=== PATIENT | female | born 1960 | race Caucasian/White ===

== ENCOUNTER → 2016-11-20 | Outpatient (CLI) | payer OTHER ==
--- NOTE | 2016-11-23 09:41 | MM ---
Reason for exam: screening (asymptomatic). Last mammogram was performed 1 year ago. History: Patient is postmenopausal and has history of ovarian cancer at age 52. Took estrogen for 6 years 1 month beginning at age 45. Physical Findings: A clinical breast exam by your physician is recommended on an annual basis and results should be correlated with mammographic findings. MG Screening Mammo w CAD Bilateral CC and MLO view(s) were taken. Prior study comparison: November 15, 2015, bilateral MG 3d screening mammo w/cad. March 26, 2014, bilateral MG screening mammo w CAD. The breast tissue is heterogeneously dense. This may lower the sensitivity of mammography. No significant changes when compared with prior studies. ASSESSMENT: Negative, BI-RAD 1 RECOMMENDATION: Routine screening mammogram of both breasts in 1 year.
== END | disposition home or self-care (01) ==
LOC: RADMAMWWP 13:08
PROVIDERS: ATTEND Family Medicine
DX: Z12.31 Encounter for screening mammogram for malignant neoplasm of breast (principal)

== ENCOUNTER → 2017-02-12 | Outpatient (CLI) | payer OTHER ==
--- NOTE | 2017-02-12 09:49 | CT ---
EXAMINATION TYPE: CT brain wo/w con DATE OF EXAM: 02/12/2017 9:32 AM COMPARISON: NONE HISTORY: Change in memory CT DLP: 1999.6 mGycm Automated exposure control for dose reduction was used. CONTRAST: CT scan of the head is performed without and with IV Contrast, patient injected with 100 mL of Omnipa que 300. FINDINGS: There is mild, diffuse periventricular white matter lucency compatible with chronic white matter isch emic change. Central structures are midline. There is no evidence of hydrocephalus. No acute focal lesion, mass ef fect or midline shift is seen. I do not see evidence of intracranial blood. Following intravenous administration of contrast, I do not see evidence of abnormal enhancement Visualized portions of the paranasal sinuses and mastoids are clear. No depressed skull fracture is s een. IMPRESSION: 1. NO ACUTE INTRACRANIAL ABNORMALITY. 2. MILD, CHRONIC WHITE MATTER ISCHEMIC CHANGE.
== END | disposition home or self-care (01) ==
LOC: RADCTMAIN 08:58
PROVIDERS: ATTEND Internal Medicine
DX: I67.82 Cerebral ischemia (principal); C56.1 Malignant neoplasm of right ovary
CPT/HCPCS: 70470; Q9967

== ENCOUNTER → 2018-01-03 | Outpatient (CLI) | payer OTHER ==
--- NOTE | 2018-01-04 10:23 | MM ---
Reason for exam: screening (asymptomatic). Last mammogram was performed 1 year and 2 months ago. History: Patient is postmenopausal and has history of ovarian cancer at age 52. Took estrogen for 6 years 1 month beginning at age 45. Physical Findings: A clinical breast exam by your physician is recommended on an annual basis and results should be correlated with mammographic findings. MG Screening Mammo w CAD Bilateral CC and MLO view(s) were taken. Prior study comparison: November 20, 2016, bilateral MG screening mammo w CAD. November 15, 2015, bilateral MG 3d screening mammo w/cad. The breast tissue is heterogeneously dense. This may lower the sensitivity of mammography. No significant changes when compared with prior studies. ASSESSMENT: Negative, BI-RAD 1 RECOMMENDATION: Routine screening mammogram of both breasts in 1 year.
== END | disposition home or self-care (01) ==
LOC: RADMAMWWP 10:11
PROVIDERS: ATTEND Family Medicine
DX: Z12.31 Encounter for screening mammogram for malignant neoplasm of breast (principal)
CPT/HCPCS: 77067

== ENCOUNTER 2018-10-09 13:56 | Inpatient (IN) | payer OTHER ==
[2018-10-09] MEDS ORDERED: AMPICILLIN-SULBACTAM 3 GM in SODIUM CHLORIDE 0.9% 100 ML IVPB STA (15:19)
[2018-10-09] MEDS ORDERED: VANCOMYCIN IV PER PHARMACY 1 EACH MISC MISCELLANE PRN (15:46)
--- NOTE | 2018-10-09 15:47 | ED ---
Upper Extremity HPI - General Chief Complaint: Extremity Injury, Upper Stated Complaint: Infected hand Time Seen by Provider: 10/09/18 14:40 Source: patient, RN notes reviewed, old records reviewed Mode of arrival: ambulatory Limitations: no limitations - History of Present Illness Initial Comments: Patient is a 58-year-old female who presents return to complain of right hand pain. Patient reports that she was bit by her PIG, the day after [place]. She reports she went to [facility]. At that time she reports that she had injuries to her arteries and veins. We had to do for internal stitches and for external stitches as well as cauterizer artery. Patient reports that the close the wound very tightly. She was placed on Augmentin for infection prevention. She's been taking the medication as prescribed. She is concerned because she's now has increased swelling, redness to the hand and purulent drainage from the laceration site. Patient states that she also has noticed that her arm seems to have a yellowish discoloration extending up to the arm. She reports that she has pain with some range of motion of her fingers but is able to flex and extend the fingers. Patient denies any fevers or chills. - Related Data Home Medications Medication Instructions Recorded Confirmed Aspirin [Adult Low Dose Aspirin EC] 81 mg PO DAILY 10/09/18 10/09/18 Cholecalciferol [Vitamin D3] 1,000 unit PO DAILY 10/09/18 10/09/18 Cyanocobalamin (Vitamin B-12) 1,000 mcg PO DAILY 10/09/18 10/09/18 [Vitamin B-12] Donepezil [Aricept] 10 mg PO HS 10/09/18 10/09/18 Evening [place] Oil 500 mg PO DAILY 10/09/18 10/09/18 Flaxseed Oil 1,000 mg PO DAILY 10/09/18 10/09/18 Magnesium 200 mg PO DAILY 10/09/18 10/09/18 Multivitamins, Thera [Multivitamin 1 tab PO DAILY 10/09/18 10/09/18 (formulary)] Triamterene/Hydrochlorothiazid 1 cap PO QAM 10/09/18 10/09/18 [Dyazide 37.5-25 Capsule] Vitamin E (Dl,Tocopheryl Acet) 400 unit PO DAILY 10/09/18 10/09/18 [Vitamin E] Zinc 50 mg PO DAILY 10/09/18 10/09/18 buPROPion HCL [Wellbutrin SR] 100 mg PO BID 10/09/18 10/09/18 Allergies Allergy/AdvReac Type Severity Reaction Status Date / Time No Known Allergies Allergy Verified 10/09/18 14:53 Review of Systems ROS Statement: Those systems with pertinent positive or pertinent negative responses have been documented in the HPI. ROS Other: All systems not noted in ROS Statement are negative. Past Medical History Past Medical History: Cancer Additional Past Medical History / Comment(s): ovarian cancer History of Any Multi-Drug Resistant Organisms: None Reported Past Surgical History: Section, Cholecystectomy, Hernia Repair, Hysterectomy Past Psychological History: No Psychological Hx Reported Smoking Status: Never smoker Past Alcohol Use History: Occasional Past Drug Use History: Marijuana General Exam - General Exam Comments Initial Comments: 58-year-old female. Alert and oriented. Limitations: no limitations General appearance: alert, in no apparent distress Head exam: Present: atraumatic, normocephalic, normal inspection Eye exam: Present: normal appearance, PERRL, EOMI. Absent: scleral icterus, conjunctival injection, periorbital swelling ENT exam: Present: normal exam, mucous membranes moist Neck exam: Present: normal inspection. Absent: tenderness, meningismus, lymphadenopathy Respiratory exam: Present: normal lung sounds bilaterally. Absent: respiratory distress, wheezes, rales, rhonchi, stridor Cardiovascular Exam: Present: regular rate, normal rhythm, normal heart sounds. Absent: systolic murmur, diastolic murmur, rubs, gallop, clicks GI/Abdominal exam: Present: soft, normal bowel sounds. Absent: distended, tenderness, guarding, rebound, rigid Right Shoulder Exam: Present: normal inspection, full ROM Upper Arm exam: Present: normal inspection, full ROM Elbow exam: Present: normal inspection, full ROM Forearm Wrist exam: Present: normal inspection, full ROM Hand Wrist exam: Present: full ROM, laceration, erythema. Absent: normal inspection (Patient has a 3 cm incision site over the dorsum of the right hand over the third metacarpal. The wound was tightly closed with some purulent drainage noted.) Neuro motor exam: Present: wrist extension intact, thumb opposition intact, thumb IP flexion intact, thumb adduction intact, fingers 2-5 abduction intact Vascular: Present: normal capillary refill Back exam: Present: normal inspection Neurological exam: Present: alert, oriented X3, CN II-XII intact Psychiatric exam: Present: normal affect, normal mood Skin exam: Present: warm, dry, intact, normal color. Absent: rash Course Vital Signs 10/09/18 14:02 Temperature 98.3 F Pulse Rate 79 Respiratory 16 Rate Blood Pressure 133/77 O2 Sat by Pulse 99 Oximetry Medical Decision Making - Medical Decision Making 58-year-old female presents emergency department with chief complaint of right hand pain and swelling. Patient was bit by her piG on October 05. Patient had internal and external sutures placed on that time. sHE Presents today with significant swelling of the hand. She does have range of motion and normal capillary refill of the fingers. This time not concerned for tenosynovitis but could be early started to this. I removed the 4 stitches from the wound. Purulent fluid was expressed from the laceration site. Patient was started on IV antibiotics, Unasyn and vancomycin. Patient will be admitted at this time under Gen. medicine with consults orthopedic surgery. Patient agrees to treatment plan will comply. She agrees for admission. - Lab Data Result diagrams: 10/09/18 15:44 Lab Results 10/09/18 Range/Units 15:44 Sodium 139 (137-145) mmol/L Potassium 3.5 (3.5-5.1) mmol/L Chloride 98 (98-107) mmol/L Carbon Dioxide 32 H (22-30) mmol/L Anion Gap 9 mmol/L BUN 15 (7-17) mg/dL Creatinine 0.94 (0.52-1.04) mg/dL Est GFR (CKD-EPI)AfAm 78 (>60 ml/min/1.73 sqM) Est GFR (CKD-EPI)NonAf 68 (>60 ml/min/1.73 sqM) Glucose 135 H (74-99) mg/dL Calcium 9.6 (8.4-10.2) mg/dL Total Bilirubin 0.5 (0.2-1.3) mg/dL AST 39 H (14-36) U/L ALT 47 (9-52) U/L Alkaline Phosphatase 80 (38-126) U/L Total Protein 6.8 (6.3-8.2) g/dL Albumin 4.0 (3.5-5.0) g/dL - Radiology Data Radiology results: report reviewed Normal and x-ray. No evidence of demineralization or signs of osteomyelitis at this time. Disposition Clinical Impression: Animal bite of right hand with infection, Failure of outpatient treatment Disposition: ADMITTED IP TO THIS HOSP Condition: Stable Additional Instructions: Patient advised follow-up with primary care Is patient prescribed a controlled substance at d/c from ED?: No Referrals: Clayton Guerrero DO [Primary Care Provider] - 1-2 days Time of Disposition: 16:32
[2018-10-09] MEDS ORDERED: MORPHINE SULFATE 4 MG/ML SYRINGE IVP STA (16:14)
[2018-10-09] MEDS ORDERED: SODIUM CHLORIDE 0.9% 1,000 ML IV ONE (16:14)
[2018-10-09 16:20] LABS: Calcium 9.6 mg/dL (8.4-10.2); Potassium 3.5 mmol/L (3.5-5.1); Total Bilirubin 0.5 mg/dL (0.2-1.3); Total Protein 6.8 g/dL (6.3-8.2)
--- NOTE | 2018-10-09 16:25 | XR ---
EXAMINATION TYPE: XR hand complete RT DATE OF EXAM: 10/09/2018 COMPARISON: NONE HISTORY: Redness and swelling TECHNIQUE: 3 views FINDINGS: There is minor spurring of the IP joints. Metacarpals are intact. I see no fracture nor dis location. There is soft tissue swelling on the dorsum of the hand. There are small densities that cou ld be foreign bodies. IMPRESSION: Possible small foreign bodies on the skin surface on the dorsum of the hand on the latera l view. Soft tissue swelling. No fracture seen.
[2018-10-09] MEDS: SODIUM CHLORIDE 0.9% 1,000 ML IV SCH (16:28)
[2018-10-09] MEDS ORDERED: VANCOMYCIN 1,500 MG in SODIUM CHLORIDE 0.9% 250 ML IVPB ONE (16:30)
[2018-10-09 16:32] LABS: Basophils # (A) 0.1 k/uL (0-0.2); Basophils % (A) 1 %; Eosinophils # (A) 0.1 k/uL (0-0.7); Eosinophils % (A) 1 %; HCT 23.3 % (34.0-46.0); HGB 7.9 gm/dL (11.4-16.0); Lymphocytes % (A) 30 %; MCH 29.8 pg (25.0-35.0); MCHC 33.8 g/dL (31.0-37.0); MCV 88.4 fL (80.0-100.0); Mean Platelet Volume 6.6; Monocytes # (A) 0.5 k/uL (0-1.0); Monocytes % (A) 6 %; Neutrophils # (A) 5.7 k/uL (1.3-7.7); Neutrophils % (A) 59 %; Platelet Count 517 k/uL (150-450); RBC 2.64 m/uL (3.80-5.40); RDW 11.9 % (11.5-15.5); WBC 9.7 k/uL (3.8-10.6)
[2018-10-09] MEDS ORDERED: LORazepam 2 MG/ML INJ IV PRN (16:33)
[2018-10-09] MEDS ORDERED: IBUPROFEN 400 MG TAB PO PRN (16:33)
[2018-10-09] MEDS ORDERED: ACETAMINOPHEN TAB 325 MG TAB PO PRN (16:33)
[2018-10-09] MEDS ORDERED: ONDANSETRON 4 MG/2 ML VIAL IVP PRN (16:33)
[2018-10-09] MEDS ORDERED: NALOXONE 0.4 MG/ML 1 ML VIAL IV PRN (16:33)
[2018-10-09] MEDS ORDERED: ALPRAZolam 0.25 MG TAB PO PRN (18:07)
--- NOTE | 2018-10-09 18:48 | P.CNOR ---
History of Present Illness - [facility] Consult date: 10/09/18 Consult reason: other History of present illness: Patient is a 58-year-old female who presented to [facility] on 2017 with regards to worsening pain and swelling involving her right hand. Patient initially had an injury involving the hand on 10/05/2018 while she was at home. She states that her pig bit her hand. She reported to [facility] initially to the emergency room. A bedside procedure was done, a closing incision with nylon sutures and she was discharged home on oral antibiotics. Over the last few days, patient has noticed worsening swelling, redness and no drainage. She reported to [facility] today reevaluation. Due to the amount of swelling and drainage, she was admitted under internal medicine for cellulitis/abscess. Our orthopedic team was consulted for possible surgical intervention. Patient was evaluated today at bedside, she did have family at bedside. She is resting comfortably. She notes discomfort over the dorsum of the right hand, mainly with movement. She notes no significant numbness or tingling involving any of the digits. She denies any wrist, elbow, shoulder pain at this time. She has no other orthopedic complaints at this time. she denies any previous surgery involving the right upper extremity. She does have a history of ovarian cancer, she's 5 in remission. She recently quit smoking, she's currently on Chantix. Review of Systems Constitutional: Reports as per [facility] Past Medical History Past Medical History: Cancer Additional Past Medical History / Comment(s): ovarian cancer History of Any Multi-Drug Resistant Organisms: None Reported Past Surgical History: Section, Cholecystectomy, Hernia Repair, Hysterectomy Additional Past Surgical History / Comment(s): broken pinky finger Past Psychological History: No Psychological Hx Reported Smoking Status: Never smoker Past Alcohol Use History: Occasional Past Drug Use History: Marijuana - Past Family History Father Additional Family Medical History / Comment(s): heart attach at 64 Medications and Allergies Home Medications Medication Instructions Recorded Confirmed Type Aspirin [Adult Low Dose Aspirin EC] 81 mg PO DAILY 10/09/18 10/09/18 History Cholecalciferol [Vitamin D3] 1,000 unit PO DAILY 10/09/18 10/09/18 History Cyanocobalamin (Vitamin B-12) 1,000 mcg PO DAILY 10/09/18 10/09/18 History [Vitamin B-12] Donepezil [Aricept] 10 mg PO HS 10/09/18 10/09/18 History Evening [place] Oil 500 mg PO DAILY 10/09/18 10/09/18 History Flaxseed Oil 1,000 mg PO DAILY 10/09/18 10/09/18 History Magnesium 200 mg PO DAILY 10/09/18 10/09/18 History Multivitamins, Thera [Multivitamin 1 tab PO DAILY 10/09/18 10/09/18 History (formulary)] Triamterene/Hydrochlorothiazid 1 cap PO QAM 10/09/18 10/09/18 History [Dyazide 37.5-25 Capsule] Vitamin E (Dl,Tocopheryl Acet) 400 unit PO DAILY 10/09/18 10/09/18 History [Vitamin E] Zinc 50 mg PO DAILY 10/09/18 10/09/18 History buPROPion HCL [Wellbutrin SR] 100 mg PO BID 10/09/18 10/09/18 History Allergies Allergy/AdvReac Type Severity Reaction Status Date / Time No Known Allergies Allergy Verified 10/09/18 14:53 Physical Examination Right upper extremity: Exam of the extremity, there is a notable linear type incision on the dorsum of the hand and the third metacarpal space. There is erythema that surrounds that area. Erythema does not track and of the wrist or distal into the fingers. I'm able to express purulent material from the wound She is able to wiggle the fingers and minimal difficulty, passive extension of the fingers reproduces no significant pain in the hand. She is able to flex the hand with minimal difficulty Obvious swelling noted throughout the second third fourth and fifth metacarpals No open lesions are visualized on the palmar aspect of the hand Radial and ulnar pulses are 2+ Sensory exam to light touch throughout the extremity is intact. Results - Labs Labs: Abnormal Lab Results - Last 24 Hours (Table) 10/09/18 10/09/18 Range/Units 15:44 15:44 RBC 2.64 L (3.80-5.40) m/uL Hgb 7.9 L (11.4-16.0) gm/dL Hct 23.3 L (34.0-46.0) % Plt Count 517 H (150-450) k/uL Carbon Dioxide 32 H (22-30) mmol/L Glucose 135 H (74-99) mg/dL AST 39 H (14-36) U/L H & H 10/09/18 Range/Units 15:44 Hgb 7.9 L (11.4-16.0) gm/dL Hct 23.3 L (34.0-46.0) % Result Diagrams: 10/09/18 15:44 10/09/18 15:44 - Diagnostic results Wrist/Hand x-ray: report reviewed, image reviewed Assessment and Plan Plan: Imagin views of the right hand were obtained and reviewed. Images demonstrate no acute fractures or dislocations. There is questionable foreign body noted, this is difficult to visualize. Assessment: 1. Right dorsal hand cellulitis/abscess 2. Subacute right hand animal bite 3. Other medical comorbidities Plan: I was able to discuss the case, including physical exam findings and imaging studies my attending Dr. White. With current symptoms, we recommend a surgical procedure, more specifically a incision and drainage along with irrigation and debridement. We would like to proceed with this on 10/10/2018. I discussed the case with the patient, this including surgical intervention at bedside tonight. Risks and benefits of the procedure were discussed, this to include but not exclude blood loss, pain and stiffness, need for subsequent surgery. Patient is in good understanding would like to proceed. Obtaining consent Nothing by mouth after midnight Medical recommendations Pain control Infectious disease consult Further recommendations to follow Time with Patient: Less than 30
[2018-10-09] MEDS ORDERED: PNEUMOCOCCAL VACC-PNEUMOVAX 23 25 MCG/0.5 ML VIAL IM ONE (19:05)
[2018-10-09] MEDS ORDERED: INFLUENZA VACCINE (6 MOS+) 60 MCG/0.5 ML SYRINGE IM ONE (19:05)
[2018-10-09] MEDS: MORPHINE SULFATE 4 MG/ML SYRINGE IV PRN ×2 (19:37→22:54)
[2018-10-09 21:23] LABS: Albumin 3.4 g/dL (3.5-5.0); Calcium 8.7 mg/dL (8.4-10.2); Potassium 3.6 mmol/L (3.5-5.1); Total Bilirubin 0.3 mg/dL (0.2-1.3); Total Protein 5.9 g/dL (6.3-8.2)
[2018-10-09] MEDS: VARENICLINE 1 MG TAB PO SCH (21:25)
[2018-10-09] MEDS: AMPICILLIN-SULBACTAM 3 GM in SODIUM CHLORIDE 0.9% 100 ML IVPB SCH (21:25)
[2018-10-09] MEDS: DONEPEZIL 10 MG TAB PO SCH (21:28)
[2018-10-09 21:29] LABS: Glucose,Whole Blood 132 mg/dL (75-99)
[2018-10-09] MEDS: buPROPion SR 100 MG TABLET.ER PO SCH (21:34)
[2018-10-09] MEDS: HEPARIN SODIUM,PORCINE 5,000 UNIT/ML 1 ML VIAL SQ SCH (21:36)
[2018-10-09] MEDS: TEMAZEPAM 15 MG CAP PO PRN (22:56)
[2018-10-10] MEDS: AMPICILLIN-SULBACTAM 3 GM in SODIUM CHLORIDE 0.9% 100 ML IVPB SCH ×4 (03:38→21:07)
[2018-10-10] MEDS: MORPHINE SULFATE 4 MG/ML SYRINGE IV PRN ×3 (03:39→22:58)
[2018-10-10 03:42] LABS: Appearance,Urine Clear (Clear); Bilirubin,Urine Negative (Negative); Blood,Urine Negative (Negative); Color,Urine Colorless; Glucose,Urine (UA) Negative (Negative); Ketones,Urine Negative (Negative); Leukocyte Esterase,Urine Negative (Negative); Nitrite,Urine Negative (Negative); PH, Urine 6.5 (5.0-8.0); Protein,Urine Negative (Negative); Specific Gravity,Urine 1.005 (1.001-1.035); Urobilinogen,Urine <2.0 mg/dL (<2.0)
[2018-10-10] MEDS: SODIUM CHLORIDE 0.9% 1,000 ML IV SCH ×3 (04:01→21:08)
[2018-10-10] MEDS: VANCOMYCIN 1,250 MG in SODIUM CHLORIDE 0.9% 250 ML IVPB SCH ×2 (06:08→18:26)
[2018-10-10] MEDS ORDERED: IV FLUID CONTINUATION 1,000 ML IV ONE (07:04)
[2018-10-10] MEDS ORDERED: MIDAZOLAM 2 MG/2 ML VIAL ONE (07:12)
[2018-10-10] MEDS ORDERED: PROPOFOL 10 MG/ML 20 ML VIAL IV ONE (07:12)
[2018-10-10] MEDS ORDERED: LIDOCAINE 1% INJ 10MG/ML (20 ML MDV) ONE (07:12)
--- NOTE | 2018-10-10 07:57 | P.OP ---
Date of Procedure: 10/10/18 Preoperative Diagnosis: Right dorsal hand laceration/infected hematoma Postoperative Diagnosis: Same Procedure(s) Performed: Irrigation and debridement right dorsal hand wound with primary closure Anesthesia: RAEANN Surgeon: Steve White Estimated Blood Loss (ml): 10 Pathology: other (Deep cultures) Condition: stable Disposition: PACU Indications for Procedure: The patient's a 58-year-old female who sustained a laceration to her right hand last Wednesday after being bit by her pet pig. She underwent primary repair at [facility] emergency room, and subsequently developed increasing swelling, redness, and drainage. Upon evaluation she was noted of evidence of significant cellulitis/infected hematoma involving the right dorsal hand. A discussion of the risks and benefits of operative intervention was made with patient junk proceed. Operative risks to include persistence of infection and possible need for subsequent procedures was discussed. Informed consent was obtained. Operative Findings: 4 cm dorsal right hand laceration centered over the third metacarpal Description of Procedure: The patient was brought to the operating room, and after induction of general anesthesia the right upper extremity was prepped and draped in normal fashion. The tourniquet was inflated to 250 mg mercury. The laceration was opened. There was significant underlying hematoma that was evacuated. Deep cultures were obtained. The underlying extensor tendons appeared to be intact. The wound was copiously irrigated with 2 L of saline. The wound edges were debrided sharply with a scalpel. The tourniquet was deflated. Hemostasis was obtained with electrocautery. The skin was loosely reapproximated with simple 3 -0 nylon suture over a [place] drain. A sterile dressing was applied. The patient was awoken from general anesthesia and transferred to recovery room in good condition. Blood loss was estimated 10 mL. No complications were incurred. Sponge and needle counts were correct at the end the case.
--- NOTE | 2018-10-10 08:16 | HP ---
HISTORY AND PHYSICAL DATE OF SERVICE: 10/09/2018 CHIEF COMPLAINTS: Right hand infection and as well as a pig bite. HISTORY OF PRESENT ILLNESS: This 58-year-old woman with a past medical history of ovarian cancer, Caesarean section, history of hernia repair being followed by Dr. Clayton Guerrero in the outpatient setting, apparently was bitten by a pet pig accidentally about 3 days ago and the patient had bleeding. The patient was treated at [facility], because of increasing pain and swelling, patient came to [facility], was found to have significant infection. The patient admitted for further evaluation. Orthopedic evaluation is being sought and orthopedics recommended incision and drainage tomorrow. There is no history of fever, rigors or chills. No history of headache, loss of consciousness, seizures at this time. The pig has been up to date with shots and doing fine according to the patient. PAST MEDICAL HISTORY: Of ovarian cancer, Caesarean section, hernia repair. MEDICATIONS: Home medications are: 1. Aricept 10 mg q.h.s. 2. Vitamin E. 3. Multivitamins. 4. Flaxseed oil. 5. Evening Lily oil. 6. Vitamin B12. 7. Vitamin D. 8. Wellbutrin SR. 10.Magnesium. 11.Aspirin 81 mg daily. ALLERGIES: None. FAMILY HISTORY: History of heart attack. SOCIAL HISTORY: History of THC and no history of smoking. REVIEW OF SYSTEMS: ENT: No diminished vision. CARDIOVASCULAR: No angina. RESPIRATORY: As mentioned. GI no nausea. no dysuria. ALLERGY/IMMUNOLOGY: No asthma or hayfever. MUSCULOSKELETAL as mentioned earlier. HEMATOLOGY/ONCOLOGY: No history of anemia. ENDOCRINE: No history of diabetes or hypothyroidism. CONSTITUTIONAL: As mentioned earlier. Dermatology: Negative. Rheumatology: Negative. Psychiatry: As mentioned earlier. PHYSICAL EXAMINATION: GENERAL: Alert and oriented times three. VITAL SIGNS: Pulse is 74, blood pressure 124/78, respiration 16, temperature 98.6, pulse ox 97% on room air. HEENT is conjunctivae normal. Oral mucosa moist. NECK is no jugular venous distention. No carotid bruit. No lymph node enlargement. CARDIOVASCULAR SYSTEM: S1, S2. RESPIRATION: Breath sound diminished in the bases. A few scattered rhonchi and crackles. ABDOMEN: Soft, nontender. No mass palpable. LEGS: No edema. No swelling. NERVOUS SYSTEM: Higher functions as mentioned. Moves all four extremities. No focal deficits. LYMPHATICS: No lymph nodes palpable in the neck, axillae or groin. SKIN: No ulcer, no rash. No bleeding. JOINTS: No active deforming arthropathy. LABS: WBC 9.2, hemoglobin 7.9, albumin 3.4. ASSESSMENT: 1. Acute cellulitis of the right dorsum status post pig bite. 2. Ovarian cancer. 3. section. 5. Hernia repair. 6. Hysterectomy. RECOMMENDATIONS AND DISCUSSION: In this 58-year-old woman who presented with multiple complex medical issues, we will monitor the patient closely. Continue the current management and symptomatic treatment. Patient started on Unasyn. Will obtain Infectious Disease and as well as orthopedic evaluation. Otherwise, resume the home medications. DVT prophylaxis. Guarded prognosis because of multiple complex medical issues. Further recommendations to follow. Copy of dictation being forwarded to Dr. Guerrero who is the primary physician. SAVITA / ELIZABETH: [id number] / MTDD
[2018-10-10] MEDS: MORPHINE SULFATE 4 MG/ML SYRINGE IVP ONE ×4 (08:30→08:45)
[2018-10-10] MEDS ORDERED: KETOROLAC 30 MG/ML 1 ML VIAL IVP ONE (08:37)
[2018-10-10] MEDS ORDERED: NON-FORMULARY DRUG (Flaxseed Oil [Flaxseed Oil] 1,000 MG) PO SCH (09:00)
[2018-10-10] MEDS: CHOLECALCIFEROL 1,000 UNIT TAB PO SCH (09:42)
[2018-10-10] MEDS: ASPIRIN 81 MG PO SCH (09:42)
[2018-10-10] MEDS: VARENICLINE 1 MG TAB PO SCH ×2 (09:42→17:17)
[2018-10-10] MEDS: CYANOCOBALAMIN 500 MCG TAB PO SCH (09:42)
[2018-10-10] MEDS: PANTOPRAZOLE 40 MG/10 ML VIAL IV SCH (09:43)
[2018-10-10] MEDS: buPROPion SR 100 MG TABLET.ER PO SCH ×2 (09:43→20:28)
[2018-10-10] MEDS: MAGNESIUM OXIDE 400 MG TAB PO SCH (09:43)
[2018-10-10] MEDS: HEPARIN SODIUM,PORCINE 5,000 UNIT/ML 1 ML VIAL SQ SCH ×2 (09:43→20:28)
[2018-10-10] MEDS: TRIAMTERENE-HCTZ 37.5-25MG 1 EACH CAP PO SCH (09:44)
[2018-10-10] MEDS: ZINC SULFATE 220 MG CAP PO SCH (09:44)
[2018-10-10] MEDS: VITAMIN E (DL,TOCOPHERYL ACET) 400 UNIT CAP PO SCH (10:05)
[2018-10-10 11:29] LABS: Basophils % (A) 1 %; Eosinophils # (A) 0.1 k/uL (0-0.7); Eosinophils % (A) 2 %; HGB 10.5 gm/dL (11.4-16.0); Lymphocytes # (A) 1.5 k/uL (1.0-4.8); Lymphocytes % (A) 35 %; MCH 30.7 pg (25.0-35.0); MCHC 33.9 g/dL (31.0-37.0); MCV 90.6 fL (80.0-100.0); Mean Platelet Volume 6.5; Monocytes # (A) 0.2 k/uL (0-1.0); Monocytes % (A) 5 %; Neutrophils # (A) 2.3 k/uL (1.3-7.7); Neutrophils % (A) 55 %; Platelet Count 280 k/uL (150-450); RBC 3.43 m/uL (3.80-5.40); WBC 4.2 k/uL (3.8-10.6)
[2018-10-10 11:52] LABS: Anion Gap 4 mmol/L; Blood Urea Nitrogen 10 mg/dL (7-17); Calcium 8.5 mg/dL (8.4-10.2); Carbon Dioxide 30 mmol/L (22-30); Chloride 106 mmol/L (98-107); Glucose 106 mg/dL (74-99); Potassium 3.7 mmol/L (3.5-5.1); Sodium 140 mmol/L (137-145)
[2018-10-10 12:17] LABS: Glucose,Whole Blood 114 mg/dL (75-99)
[2018-10-10] MEDS: HYDROcodone/APAP 5-325MG 1 EACH TAB PO PRN ×2 (12:38→18:36)
[2018-10-10] MEDS: MULTIVITAMINS, THERA 1 EACH TAB PO SCH (13:41)
--- NOTE | 2018-10-10 18:30 | P.CONS ---
History of Present Illness - Reason for Consult Consult date: 10/10/18 - Chief Complaint Pain after pig bite - History of Present Illness 58-year-old female who has a past history of ovarian cancer from over 5 years ago he has been doing relatively well over time. She had stopped smoking at the time of her diagnosis of cancer, but her mother has become ill and has moved in with her, and with that stress she has restarted smoking. However is now gone back on Chantix and is trying to stop again. She has a large pet pig the lives in the home, approximately 150 pounds. It is a gentle animal usually, however she was picking up a piece of apple from the floor to feed it to the pig when it suddenly bit her hand. She is sure that it is accidental, she believes if it was purposeful it would have easily broken her hand. In the following days after the bite the area became increasing painful swelling and had some bleeding. Consequently she was seen at an outlying hospital. The area was cleansed and she was placed in antibiotic. However the area became considerably more infected and presented to our emergency center. She's not been seen by orthopedic surgery despite his been incised and drained. Surgical note relates to significant abscess and large hematoma. No evidence of any significant tendon involvement. The patient relates that in addition to the increasing pain and was becoming more swollen and she was having some numbness and tingling it was very concerned in this is what caused her to seek further care. She's not having high-grade fevers chills or rigors but does feel poorly Review of Systems Pain to the right hand HEENT:Denies headache or acute visual change. Denies sinus or mouth discomforts. Denies neck stiffness or pain. Denies significant oral cavity pain. Denies difficulty on swallowing. Lungs: Denies significant shortness of breath, cough, sputum production, or hemoptysis. Cardiovascular: Denies significant shortness of breath, chest pain, chest wall pain, orthopnea, dyspnea on exertion, syncope Gastrointestinal:Denies nausea, vomiting, diarrhea, constipation, hematemesis, melena, hematochezia. No no significant change of bowel habit noticed. Musculoskeletal: Right hand pain Skin: Animal bites to the right hand Neuro: Denies headache or visual change. Denies any new onset weakness or difficulty with ambulation. Denies falls or seizures. Psychiatric:Denies anxiety or depression. Endocrine: Denies significant fatigue, denies significant weight loss or weight gain. Past Medical History Past Medical History: Cancer Additional Past Medical History / Comment(s): ovarian cancer History of Any Multi-Drug Resistant Organisms: None Reported Past Surgical History: Section, Cholecystectomy, Hernia Repair, Hysterectomy Additional Past Surgical History / Comment(s): broken pinky finger Past Psychological History: No Psychological Hx Reported Additional Psychological History / Comment(s): In the process of becoming . Her elderly ill mother is living with her, causing great stress. As noted has the pet pig, and she is distraught because the animal has her family very afraid, it's a large animal and likely will be placed into a care home before discharge from hospital. The elderly mother apparently is terrified of the animal. No alcohol use over crucial drug use. Disabled. No other animals in the home Smoking Status: Current every day smoker (However is now on Chantix and is trying to stop and recently seems to have stopped) Past Alcohol Use History: Occasional Past Drug Use History: Marijuana - Past Family History Father Additional Family Medical History / Comment(s): heart attach at 64 Medications and Allergies Home Medications and Allergies Comment(s): Current Medications Acetaminophen (Tylenol Tab) 650 mg PO Q6HR PRN PRN Reason: Mild Pain or Fever > 100.5 Hydrocodone Bitart/Acetaminophen (Simpson 5-325) 1 each PO Q6HR PRN PRN Reason: Pain Last Admin: 10/10/18 12:38 Dose: 1 each Hydrocodone Bitart/Acetaminophen (Simpson 5-325) 2 each PO Q6HR PRN PRN Reason: Pain Alprazolam (Xanax) 0.25 mg PO TID PRN PRN Reason: Anxiety Aspirin (Aspirin) 81 mg PO DAILY COUNT INCLUDES THE [facility] Last Admin: 10/10/18 09:42 Dose: 81 mg Bupropion HCl (Wellbutrin Sr) 100 mg PO BID COUNT INCLUDES THE [facility] Last Admin: 10/10/18 09:43 Dose: 100 mg Cholecalciferol (Vitamin D3) 1,000 unit PO DAILY COUNT INCLUDES THE [facility] Last Admin: 10/10/18 09:42 Dose: 1,000 unit Cyanocobalamin (Vitamin B-12) 1,000 mcg PO DAILY COUNT INCLUDES THE [facility] Last Admin: 10/10/18 09:42 Dose: 1,000 mcg Donepezil HCl (Aricept) 10 mg PO HS COUNT INCLUDES THE [facility] Last Admin: 10/09/18 21:28 Dose: 10 mg Heparin Sodium (Porcine) (Heparin) 5,000 unit SQ Q12HR COUNT INCLUDES THE [facility] Last Admin: 10/10/18 09:43 Dose: 5,000 unit Sodium Chloride (Saline 0.9%) 1,000 mls @ 100 mls/hr IV .Q10H COUNT INCLUDES THE [facility] Last Admin: 10/10/18 12:38 Dose: 100 mls/hr Ampicillin Sodium/Sulbactam (Sodium 3 gm/ Sodium Chloride) 100 mls @ 200 mls/ hr IVPB Q6H COUNT INCLUDES THE [facility] Last Admin: 10/10/18 16:26 Dose: 200 mls/hr Vancomycin HCl 1,250 mg/ (Sodium Chloride) 250 mls @ 125 mls/hr IVPB Q12H COUNT INCLUDES THE [facility] Last Admin: 10/10/18 06:08 Dose: 125 mls/hr Ibuprofen (Motrin) 400 mg PO Q6HR PRN PRN Reason: Mild Pain or Fever > 100.5 Ketorolac Tromethamine (Toradol) 30 mg IVP Q6HR PRN PRN Reason: Moderate Pain Stop: 10/14/18 16:34 Lorazepam (Ativan) 0.5 mg IV Q6HR PRN PRN Reason: Anxiety Magnesium Oxide (Mag-Ox) 400 mg PO DAILY COUNT INCLUDES THE [facility] Last Admin: 10/10/18 09:43 Dose: 400 mg Miscellaneous Information (Vancomycin Trough Due) 0 each MISCELLANE DIRECTED ONE Stop: 10/11/18 18:01 Morphine Sulfate (Morphine Sulfate (Inj)) 4 mg IV Q4HR PRN PRN Reason: Severe Pain Last Admin: 10/10/18 17:14 Dose: 4 mg Multivitamins (Theragran) 1 each PO DAILY@1200 COUNT INCLUDES THE [facility] Last Admin: 10/10/18 13:41 Dose: Not Given Naloxone HCl (Narcan) 0.2 mg IV Q2M PRN PRN Reason: Opioid Reversal Ondansetron HCl (Zofran) 4 mg IVP Q8HR PRN PRN Reason: Nausea And Vomiting Last Admin: 10/10/18 13:38 Dose: 4 mg Pantoprazole Sodium (Protonix) 40 mg IV DAILY COUNT INCLUDES THE [facility] Last Admin: 10/10/18 09:43 Dose: 40 mg Temazepam (Restoril) 15 mg PO HS PRN PRN Reason: Insomnia Last Admin: 10/09/18 22:56 Dose: 15 mg Triamterene/HCTZ (Dyazide) 1 each PO QAM COUNT INCLUDES THE [facility] Last Admin: 10/10/18 09:44 Dose: 1 each Varenicline (Chantix) 1 mg PO PC-BID COUNT INCLUDES THE [facility] Last Admin: 10/10/18 17:17 Dose: 1 mg Vitamin E (Vitamin E) 400 unit PO DAILY COUNT INCLUDES THE [facility] Last Admin: 10/10/18 10:05 Dose: 400 unit Zinc Sulfate (Orazinc) 220 mg PO DAILY COUNT INCLUDES THE [facility] Last Admin: 10/10/18 09:44 Dose: 220 mg Home Medications Medication Instructions Recorded Confirmed Type Aspirin [Adult Low Dose Aspirin EC] 81 mg PO DAILY 10/09/18 10/09/18 History Cholecalciferol [Vitamin D3] 1,000 unit PO DAILY 10/09/18 10/09/18 History Cyanocobalamin (Vitamin B-12) 1,000 mcg PO DAILY 10/09/18 10/09/18 History [Vitamin B-12] Donepezil [Aricept] 10 mg PO HS 10/09/18 10/09/18 History Evening [place] Oil 500 mg PO DAILY 10/09/18 10/09/18 History Flaxseed Oil 1,000 mg PO DAILY 10/09/18 10/09/18 History Magnesium 200 mg PO DAILY 10/09/18 10/09/18 History Multivitamins, Thera [Multivitamin 1 tab PO DAILY 10/09/18 10/09/18 History (formulary)] Triamterene/Hydrochlorothiazid 1 cap PO QAM 10/09/18 10/09/18 History [Dyazide 37.5-25 Capsule] Vitamin E (Dl,Tocopheryl Acet) 400 unit PO DAILY 10/09/18 10/09/18 History [Vitamin E] Zinc 50 mg PO DAILY 10/09/18 10/09/18 History buPROPion HCL [Wellbutrin SR] 100 mg PO BID 10/09/18 10/09/18 History Allergies Allergy/AdvReac Type Severity Reaction Status Date / Time No Known Allergies Allergy Verified 10/09/18 14:53 Physical Exam Vitals: Vital Signs Temp Pulse Pulse Pulse Resp BP Pulse Ox 10/10/18 15:00 97.8 F 77 16 94/55 95 10/10/18 09:53 69 18 115/64 94 L 10/10/18 09:24 98.2 F 69 18 123/71 94 L 10/10/18 08:45 71 16 122/69 96 10/10/18 08:30 71 16 136/70 100 10/10/18 08:15 79 16 125/67 100 10/10/18 08:00 70 14 131/72 100 10/10/18 07:54 97.6 F 65 14 123/61 100 10/10/18 07:07 81 81 18 121/72 95 10/10/18 05:37 97.8 F 78 14 116/68 94 L 10/09/18 23:00 98.6 F 74 16 125/78 97 10/09/18 18:49 97.8 F 78 14 116/68 94 L Intake and Output 10/10/18 10/10/18 10/10/18 06:59 14:59 22:59 Intake Total 300 Output Total 700 10 Balance -700 290 Intake: IV 300 Output: Urine 700 Estimated Blood Loss 10 Other: # Voids 1 1 # Bowel Movements 0 # Emeses 1 Pleasant 58-year-old woman of average build who is in no distress but does complain of pain to the right wrist HEENT: Anicteric conjunctiva are pink and moist nasal mucosa grossly intact without significant lesions, there is no thrush. Neck: The neck is supple without significant lymphadenopathy or thyromegaly. Lungs: Good bilateral air entry without significant crackles or wheezing. There is no significant bronchial sounds. There is no egophony or dullness. Heart: Regular rate and rhythm with an audible S1-S2, no S3 no S4. There is no significant murmur click or rub, PMI was nondisplaced. Abdomen: Positive bowel sounds soft and nontender without palpable masses or organomegaly. There was no guarding or rebound. Extremities: The left arm is normal. The right arm shows evidence the recent surgical intervention the dressing is not removed since it is such a short time from surgery. However is a lack of significant ascending erythema above the dressing, there is no significant tenderness in the epitrochlear or axillary lymph node. Lower extremities only have trace edema with positive in lesions Neuro: Awake alert oriented to person place and time. There are no acute new gross focal sensory motor deficits. Results CBC & Chem 7: 10/10/18 11:14 10/10/18 11:14 Labs: Abnormal Lab Results - Last 24 Hours (Table) 10/09/18 10/09/18 10/10/18 Range/Units 20:33 21:02 11:14 RBC 3.43 L (3.80-5.40) m/uL Hgb 10.5 L (11.4-16.0) gm/dL Hct 31.0 L (34.0-46.0) % Glucose 125 H (74-99) mg/dL POC Glucose (mg/dL) 132 H (75-99) mg/dL AST 38 H (14-36) U/L Total Protein 5.9 L (6.3-8.2) g/dL Albumin 3.4 L (3.5-5.0) g/dL 10/10/18 10/10/18 Range/Units 11:14 12:10 RBC (3.80-5.40) m/uL Hgb (11.4-16.0) gm/dL Hct (34.0-46.0) % Glucose 106 H (74-99) mg/dL POC Glucose (mg/dL) 114 H (75-99) mg/dL AST (14-36) U/L Total Protein (6.3-8.2) g/dL Albumin (3.5-5.0) g/dL Microbiology - Last 24 Hours (Table) 10/09/18 15:44 Blood Culture - Preliminary Blood No Growth after 24 hours 10/10/18 07:42 Anaerobic Culture - Preliminary Hand - Right 10/10/18 07:42 Wound Culture - Preliminary Hand - Right 10/09/18 16:30 Gram Stain - Preliminary Hand - Right Wound Culture - Preliminary 10/09/18 18:25 Gram Stain - Preliminary Hand - Right Wound Culture - Preliminary 10/09/18 18:25 Anaerobic Culture - Preliminary Hand - Right Laboratory Results WBC 4.2 k/uL (3.8-10.6) 10/10/18 11:14 RBC 3.43 m/uL (3.80-5.40) L 10/10/18 11:14 Hgb 10.5 gm/dL (11.4-16.0) L 10/10/18 11:14 Hct 31.0 % (34.0-46.0) L 10/10/18 11:14 MCV 90.6 fL (80.0-100.0) 10/10/18 11:14 MCH 30.7 pg (25.0-35.0) 10/10/18 11:14 MCHC 33.9 g/dL (31.0-37.0) 10/10/18 11:14 RDW 12.0 % (11.5-15.5) 10/10/18 11:14 Plt Count 280 k/uL (150-450) 10/10/18 11:14 Neutrophils % 55 % 10/10/18 11:14 Lymphocytes % 35 % 10/10/18 11:14 Monocytes % 5 % 10/10/18 11:14 Eosinophils % 2 % 10/10/18 11:14 Basophils % 1 % 10/10/18 11:14 Neutrophils # 2.3 k/uL (1.3-7.7) 10/10/18 11:14 Lymphocytes # 1.5 k/uL (1.0-4.8) 10/10/18 11:14 Monocytes # 0.2 k/uL (0-1.0) 10/10/18 11:14 Eosinophils # 0.1 k/uL (0-0.7) 10/10/18 11:14 Basophils # 0.0 k/uL (0-0.2) 10/10/18 11:14 Sodium 140 mmol/L (137-145) 10/10/18 11:14 Potassium 3.7 mmol/L (3.5-5.1) 10/10/18 11:14 Chloride 106 mmol/L (98-107) 10/10/18 11:14 Carbon Dioxide 30 mmol/L (22-30) 10/10/18 11:14 Anion Gap 4 mmol/L 10/10/18 11:14 BUN 10 mg/dL (7-17) 10/10/18 11:14 Creatinine 0.79 mg/dL (0.52-1.04) 10/10/18 11:14 Est GFR (CKD-EPI)AfAm >90 (>60 ml/min/1.73 sqM) 10/10/18 11:14 Est GFR (CKD-EPI)NonAf 84 (>60 ml/min/1.73 sqM) 10/10/18 11:14 Glucose 106 mg/dL (74-99) H 10/10/18 11:14 POC Glucose (mg/dL) 114 mg/dL (75-99) H 10/10/18 12:10 POC Glu Video Game Repair Technician ID Bethany Szymanski 10/10/18 12:10 Calcium 8.5 mg/dL (8.4-10.2) 10/10/18 11:14 Total Bilirubin 0.3 mg/dL (0.2-1.3) 10/09/18 20:33 AST 38 U/L (14-36) H 10/09/18 20:33 ALT 45 U/L (9-52) 10/09/18 20:33 Alkaline Phosphatase 82 U/L (38-126) 10/09/18 20:33 Total Protein 5.9 g/dL (6.3-8.2) L 10/09/18 20:33 Albumin 3.4 g/dL (3.5-5.0) L 10/09/18 20:33 Urine Color Colorless 10/10/18 03:30 Urine Appearance Clear (Clear) 10/10/18 03:30 Urine pH 6.5 (5.0-8.0) 10/10/18 03:30 Ur Specific [place] 1.005 (1.001-1.035) 10/10/18 03:30 Urine Protein Negative (Negative) 10/10/18 03:30 Urine Glucose (UA) Negative (Negative) 10/10/18 03:30 Urine Ketones Negative (Negative) 10/10/18 03:30 Urine Blood Negative (Negative) 10/10/18 03:30 Urine Nitrite Negative (Negative) 10/10/18 03:30 Urine Bilirubin Negative (Negative) 10/10/18 03:30 Urine Urobilinogen <2.0 mg/dL (<2.0) 10/10/18 03:30 Ur Leukocyte Esterase Negative (Negative) 10/10/18 03:30 Microbiology 10/09/18 15:44 Blood Blood Culture - Preliminary No Growth after 24 hours 10/10/18 07:42 Hand - Right Anaerobic Culture - Preliminary 10/10/18 07:42 Hand - Right Wound Culture - Preliminary 10/09/18 16:30 Hand - Right Gram Stain - Preliminary 10/09/18 16:30 Hand - Right Wound Culture - Preliminary 10/09/18 18:25 Hand - Right Gram Stain - Preliminary 10/09/18 18:25 Hand - Right Wound Culture - Preliminary 10/09/18 18:25 Hand - Right Anaerobic Culture - Preliminary Comments: Hand x-ray without evidence of fracture preoperative potential foreign bodies Assessment and Plan (1) Animal bite of right hand with infection Current Visit: Yes Status: Acute Code(s): S61.451A - OPEN BITE OF RIGHT HAND , INITIAL ENCOUNTER; L08.9 - LOCAL INFECTION OF THE SKIN AND SUBCUTANEOUS TISSUE , UNSP SNOMED Code(s): 705438055 (2) Bitten by pig, sequela Narrative/Plan: 58-year-old female who has a largepet pig which is normally well behaved seems to have accidentally bitten her right hand when she was picking up a piece of apple from the floor. She was treated in the outpatient setting but with the care which included closure of the wound antibiotic therapy did not allow improvement. Was taken to the operating room where a large hematoma that was infected was drained. Does not seem to have evidence of deep space infection in that there was no tendon or bony exposure. Cultures are in process, pasteurella is a common pathogen in the pig mouth. Please also are carriers of MRSA and consequently Unasyn and vancomycin are being given until cultures are available. Elevation of the hand on multiple pillows to help with the edema K pad as requested Unclear course of antibiotic therapy at this time. Current Visit: Yes Status: Acute Code(s): W55.41XS - BITTEN BY PIG, SEQUELA SNOMED Code(s): 336279256
[2018-10-10] MEDS: KETOROLAC 30 MG/ML 1 ML VIAL IVP PRN (18:41)
--- NOTE | 2018-10-10 18:46 | PN ---
PROGRESS NOTE DATE OF SERVICE: 10/10/2018 This 58-year-old woman who was admitted with acute cellulitis of the right dorsum hand, secondary to pig bite underwent irrigation and debridement of the right dorsal hand wound with primary closure by Dr. White. The tendons found to be intact. No chest pain. No palpitations. No fever. The patient is on IV Unasyn. EXAM: Alert and oriented times three. Pulse 77. Blood pressure 90/54, respirations 16, temperature 97.8, pulse ox 94% on room air. HEENT: Conjunctivae normal. Neck is no jugular venous distention. Cardiovascular: S1, S2 muffled. Respirations: Breath sounds diminished in the bases. No rhonchi. No crackles. Abdomen is soft. Nontender. No mass palpable. Legs are no edema. No swelling. Nervous system: Right hand status post irrigation and debridement. LABS: WBC 4.2, hemoglobin is 10.5. The cultures are pending at this time. ASSESSMENT: 1. Acute cellulitis and wound of the right dorsum of the hand status post pig bite and status post irrigation and debridement of the right dorsal hand wound with primary closure by Dr. White. 2. Ovarian cancer history. 3. History of Caesarean section. 4. History of hernia repair. 5. History of hysterectomy. 6. Anemia, etiology undetermined. RECOMMENDATIONS AND DISCUSSION: Recommend to continue current medications, continue antibiotic, management and symptomatic treatment and continue to follow. Continue to follow the cultures to direct the final antibiotic treatment. Guarded prognosis. Further recommendations to follow. MMODL / IJN: [id number] /
[2018-10-10] MEDS: DONEPEZIL 10 MG TAB PO SCH (20:27)
[2018-10-10] MEDS: TEMAZEPAM 15 MG CAP PO PRN (22:58)
[2018-10-11] MEDS: HYDROcodone/APAP 5-325MG 1 EACH TAB PO PRN ×4 (04:47→22:02)
[2018-10-11] MEDS: AMPICILLIN-SULBACTAM 3 GM in SODIUM CHLORIDE 0.9% 100 ML IVPB SCH ×4 (04:47→22:02)
[2018-10-11] MEDS: VANCOMYCIN 1,250 MG in SODIUM CHLORIDE 0.9% 250 ML IVPB SCH ×2 (06:41→18:35)
[2018-10-11] MEDS: CHOLECALCIFEROL 1,000 UNIT TAB PO SCH (08:12)
[2018-10-11] MEDS: MAGNESIUM OXIDE 400 MG TAB PO SCH (08:12)
[2018-10-11] MEDS: MULTIVITAMINS, THERA 1 EACH TAB PO SCH (08:12)
[2018-10-11] MEDS: ASPIRIN 81 MG PO SCH (08:12)
[2018-10-11] MEDS: PANTOPRAZOLE 40 MG/10 ML VIAL IV SCH (08:12)
[2018-10-11] MEDS: CYANOCOBALAMIN 500 MCG TAB PO SCH (08:12)
[2018-10-11] MEDS: SODIUM CHLORIDE 0.9% 1,000 ML IV SCH (08:13)
[2018-10-11] MEDS: HEPARIN SODIUM,PORCINE 5,000 UNIT/ML 1 ML VIAL SQ SCH ×2 (08:13→20:38)
[2018-10-11] MEDS: TRIAMTERENE-HCTZ 37.5-25MG 1 EACH CAP PO SCH (08:26)
[2018-10-11] MEDS: VITAMIN E (DL,TOCOPHERYL ACET) 400 UNIT CAP PO SCH (08:26)
[2018-10-11] MEDS: VARENICLINE 1 MG TAB PO SCH ×2 (08:26→17:53)
[2018-10-11] MEDS: ZINC SULFATE 220 MG CAP PO SCH (08:26)
[2018-10-11] MEDS: buPROPion SR 100 MG TABLET.ER PO SCH ×2 (08:26→20:38)
[2018-10-11 12:32] LABS: Basophils % (A) 1 %; Eosinophils # (A) 0.1 k/uL (0-0.7); Eosinophils % (A) 3 %; HCT 30.4 % (34.0-46.0); HGB 10.2 gm/dL (11.4-16.0); Lymphocytes # (A) 1.6 k/uL (1.0-4.8); Lymphocytes % (A) 35 %; MCH 30.5 pg (25.0-35.0); MCHC 33.6 g/dL (31.0-37.0); MCV 90.8 fL (80.0-100.0); Mean Platelet Volume 6.7; Monocytes # (A) 0.2 k/uL (0-1.0); Monocytes % (A) 5 %; Neutrophils # (A) 2.4 k/uL (1.3-7.7); Neutrophils % (A) 55 %; Platelet Count 270 k/uL (150-450); RBC 3.35 m/uL (3.80-5.40); RDW 12.2 % (11.5-15.5); WBC 4.4 k/uL (3.8-10.6)
[2018-10-11 12:40] LABS: Anion Gap 4 mmol/L; Blood Urea Nitrogen 9 mg/dL (7-17); Calcium 8.5 mg/dL (8.4-10.2); Carbon Dioxide 30 mmol/L (22-30); Chloride 106 mmol/L (98-107); Glucose 86 mg/dL (74-99); Sodium 140 mmol/L (137-145)
--- NOTE | 2018-10-11 13:34 | P.PN ---
Subjective Progress Note Date: 10/11/18 Principal diagnosis: Status post irrigation and debridement right dorsal hand wound with primary closure Patient evaluated today bedside, she is resting comfortably. She notes no acute pain involving the right hand. She denies any fevers or chills. Objective - Vital Signs Vital signs: Vital Signs Temp 98.1 F 10/11/18 07:00 Pulse 94 10/11/18 07:00 Resp 18 10/11/18 07:00 BP 111/63 10/11/18 07:00 Pulse Ox 93 L 10/11/18 07:00 Intake & Output 10/10/18 10/11/18 10/11/18 18:59 06:59 18:59 Intake Total 540 Output Total 10 Balance 530 Intake: IV 300 Oral 240 Output: Estimated Blood Loss 10 Other: # Voids 1 2 # Emeses 1 - Exam Right upper extremity: Initial postoperative management was removed, [place] drain was removed. No active drainage visualized. No significant areas of erythema or soft tissue swelling. She is able to wiggle the fingers with minimal difficulty. Sensation to light touch throughout the right hand is intact, radial pulses 2+. - Labs CBC & Chem 7: 10/11/18 12:06 10/11/18 12:06 Labs: Abnormal Lab Results - Last 24 Hours (Table) 10/11/18 Range/Units 12:06 RBC 3.35 L (3.80-5.40) m/uL Hgb 10.2 L (11.4-16.0) gm/dL Hct 30.4 L (34.0-46.0) % Microbiology - Last 24 Hours (Table) 10/10/18 07:42 Gram Stain - Preliminary Hand - Right Wound Culture - Preliminary 10/09/18 15:44 Blood Culture - Preliminary Blood No Growth after 24 hours 10/10/18 07:42 Anaerobic Culture - Preliminary Hand - Right 10/09/18 16:30 Gram Stain - Preliminary Hand - Right Wound Culture - Preliminary 10/09/18 18:25 Gram Stain - Preliminary Hand - Right Wound Culture - Preliminary Assessment and Plan Plan: Assessment: 1. Postop day 1 status post irrigation and debridement right dorsal hand wound with primary closure Plan: Daily dressing changes Ice and elevate Pain control Await culture and sensitivities Other medical genetics director recommendations Discharge planning: Plan for discharge home in the next day or 2 Time with Patient: Less than 30
[2018-10-11] MEDS: KETOROLAC 30 MG/ML 1 ML VIAL IVP PRN (13:53)
[2018-10-11] MEDS ORDERED: VANCOMYCIN TROUGH DUE 1 EACH MISC MISCELLANE ONE (18:00)
[2018-10-11] MEDS: DONEPEZIL 10 MG TAB PO SCH (20:38)
[2018-10-12] MEDS: AMPICILLIN-SULBACTAM 3 GM in SODIUM CHLORIDE 0.9% 100 ML IVPB SCH ×3 (03:54→15:32)
[2018-10-12] MEDS: HYDROcodone/APAP 5-325MG 1 EACH TAB PO PRN (04:32)
[2018-10-12] MEDS: VANCOMYCIN 1,250 MG in SODIUM CHLORIDE 0.9% 250 ML IVPB SCH (06:37)
[2018-10-12 07:18] VITALS: RESP 18
--- NOTE | 2018-10-12 07:54 | PN ---
PROGRESS NOTE DATE OF SERVICE: 10/11/2018 This is a 58-year-old woman who was admitted with acute cellulitis and wound of the right dorsum of the hand secondary to a pig bite is being closely monitored. No chest pain. No palpitations. No fever. The patient was also seen by Infectious Disease and as well as Orthopedic Surgery. Cultures are negative so far. No chest pain. No palpitations. No fever. PHYSICAL EXAM: Alert and oriented x3. Pulse 71, blood pressure 122/70, respiration 17, temperature 98.2, pulse ox 96% on room air. HEENT: Conjunctivae normal, oral mucosa moist. NECK: No jugular venous distention. No lymph node enlargement. CARDIOVASCULAR SYSTEM: S1, S2, muffled. RESPIRATORY: Breath sounds diminished at the bases, no rhonchi, no crackles. ABDOMEN: Soft, nontender. LEGS: No edema, no swelling. NERVOUS SYSTEM: No focal deficits. Examination of the right forearm, the healing wound present. LABS: WBC 4.5, hemoglobin is 10.2. ASSESSMENT: 1. Acute cellulitis of the wound of the right dorsum of the hand, status post pig bite and status post irrigation and debridement of the right dorsal hand wound with primary closure. 2. Ovarian cancer history. 3. History of Caesarean section. 4. History of hernia repair. 5. History of hysterectomy. 6. Anemia, etiology undetermined. RECOMMENDATION: I recommend to continue current management and treatment. Otherwise at this time, continue with the broad-spectrum IV antibiotics, closely followed by Infectious Disease and Orthopedic Surgery. Guarded prognosis. Further recommendations to follow. MMODL / IJN: [id number] /
[2018-10-12] MEDS: CYANOCOBALAMIN 500 MCG TAB PO SCH (08:45)
[2018-10-12] MEDS: PANTOPRAZOLE 40 MG/10 ML VIAL IV SCH (08:45)
[2018-10-12] MEDS: VARENICLINE 1 MG TAB PO SCH (08:46)
[2018-10-12] MEDS: MAGNESIUM OXIDE 400 MG TAB PO SCH (08:46)
[2018-10-12] MEDS: KETOROLAC 30 MG/ML 1 ML VIAL IVP PRN ×2 (08:46→15:05)
[2018-10-12] MEDS: ZINC SULFATE 220 MG CAP PO SCH (08:46)
[2018-10-12] MEDS: VITAMIN E (DL,TOCOPHERYL ACET) 400 UNIT CAP PO SCH (08:46)
[2018-10-12] MEDS: HEPARIN SODIUM,PORCINE 5,000 UNIT/ML 1 ML VIAL SQ SCH (08:46)
[2018-10-12] MEDS: MULTIVITAMINS, THERA 1 EACH TAB PO SCH (08:46)
[2018-10-12] MEDS: CHOLECALCIFEROL 1,000 UNIT TAB PO SCH (08:46)
[2018-10-12] MEDS: TRIAMTERENE-HCTZ 37.5-25MG 1 EACH CAP PO SCH (08:46)
[2018-10-12] MEDS: ASPIRIN 81 MG PO SCH (08:46)
[2018-10-12] MEDS: buPROPion SR 100 MG TABLET.ER PO SCH (08:48)
[2018-10-12 11:15] LABS: Basophils % (A) 1 %; Eosinophils # (A) 0.1 k/uL (0-0.7); Eosinophils % (A) 2 %; HCT 32.8 % (34.0-46.0); HGB 10.7 gm/dL (11.4-16.0); Lymphocytes # (A) 1.3 k/uL (1.0-4.8); Lymphocytes % (A) 29 %; MCH 29.8 pg (25.0-35.0); MCHC 32.7 g/dL (31.0-37.0); Mean Platelet Volume 6.5; Monocytes # (A) 0.3 k/uL (0-1.0); Monocytes % (A) 7 %; Neutrophils # (A) 2.6 k/uL (1.3-7.7); Neutrophils % (A) 58 %; Platelet Count 269 k/uL (150-450); RDW 11.9 % (11.5-15.5); WBC 4.4 k/uL (3.8-10.6)
[2018-10-12 11:32] LABS: Anion Gap 7 mmol/L; Blood Urea Nitrogen 8 mg/dL (7-17); Calcium 8.9 mg/dL (8.4-10.2); Carbon Dioxide 30 mmol/L (22-30); Chloride 104 mmol/L (98-107); Glucose 146 mg/dL (74-99); Potassium 3.8 mmol/L (3.5-5.1); Sodium 141 mmol/L (137-145)
--- NOTE | 2018-10-12 13:30 | P.PN ---
Subjective Progress Note Date: 10/12/18 Principal diagnosis: Status post irrigation and debridement right dorsal hand wound with primary closure Patient evaluated today bedside, she is resting comfortably. She notes no acute pain involving the right hand. She denies any fevers or chills. Objective - Vital Signs Vital signs: Vital Signs Temp 97.9 F 10/12/18 06:55 Pulse 74 10/12/18 06:55 Resp 18 10/12/18 06:55 BP 113/70 10/12/18 06:55 Pulse Ox 98 10/12/18 06:55 Intake & Output 10/11/18 10/12/18 10/12/18 18:59 06:59 18:59 Intake Total 480 630 Balance 480 630 Intake: Intake, IV Titration 530 Amount Ampicillin-Sulbactam 3 gm 200 In Sodium Chloride 0.9% 100 ml @ 200 mls/hr IVPB Q6H JOANA Rx#:[id number] Sodium Chloride 0.9% 1, 80 000 ml @ 100 mls/hr IV . Q10H JOANA Rx#:[id number] Vancomycin 1,250 mg In 250 Sodium Chloride 0.9% 250 ml @ 125 mls/hr IVPB Q12H JOANA Rx#:[id number] Oral 480 100 Other: # Voids 2 1 - Exam Right upper extremity: Initial postoperative management was removed, [place] drain was removed. No active drainage visualized. No significant areas of erythema or soft tissue swelling. She is able to wiggle the fingers with minimal difficulty. Sensation to light touch throughout the right hand is intact, radial pulses 2+. - Labs CBC & Chem 7: 10/12/18 10:29 10/12/18 10:29 Labs: Abnormal Lab Results - Last 24 Hours (Table) 10/12/18 10/12/18 Range/Units 10:29 10:29 RBC 3.60 L (3.80-5.40) m/uL Hgb 10.7 L (11.4-16.0) gm/dL Hct 32.8 L (34.0-46.0) % Glucose 146 H (74-99) mg/dL Microbiology - Last 24 Hours (Table) 10/09/18 18:25 Anaerobic Culture - Preliminary Hand - Right 10/09/18 18:25 Gram Stain - Final Hand - Right Wound Culture - Final 10/09/18 16:30 Gram Stain - Final Hand - Right Wound Culture - Final 10/09/18 15:44 Blood Culture - Preliminary Blood No Growth after 48 hours 10/10/18 07:42 Gram Stain - Preliminary Hand - Right Wound Culture - Preliminary Assessment and Plan Plan: Assessment: 1. Postop day #2 status post irrigation and debridement right dorsal hand wound with primary closure Plan: Daily dressing changes Ice and elevate Pain control Infectious disease recommendations for abx Other nuclear medical technologist recommendations Discharge planning: Plan for discharge home today Time with Patient: Less than 30
[2018-10-12 16:18] VITALS: BP 133/79; PULSE 62; TEMP 97.4
[2018-10-13] MEDS ORDERED: PANTOPRAZOLE 40 MG TABLET PO SCH (07:30)
--- NOTE | 2018-10-13 08:13 | DS ---
DISCHARGE SUMMARY DATE OF SERVICE: 10/12/2018 FINAL DIAGNOSES: 1. Acute cellulitis of the wound of the right dorsum of the hand, status post pig bite, status post irrigation and debridement of the right dorsal hand wound with primary closure. 2. Ovarian cancer history. 3. History of section. 4. History of hernia repair. 5. History of hysterectomy. 6. Anemia, etiology undetermined. DISCHARGE DISPOSITION: The patient will be discharged in stable condition with guarded prognosis. Infectious Disease and Orthopedic Surgery cleared the patient for discharge. HISTORY OF PRESENT ILLNESS: This 58-year-old woman was admitted with right dorsal hand wound after pig bite. Patient had surgery by Orthopedic Surgery. Infectious Disease saw the patient. Empiric antibiotics were given. Microbiology is negative so far. The patient improved significantly. On exam, vitals are stable. CARDIOVASCULAR: S1, S2 muffled. ABDOMEN: Soft. NERVOUS SYSTEM: No focal deficits. Wound is healing at this time. DISCHARGE ADVICE: 1. Diet is cardiac diet. 2. Activity limited until followup. 3. Follow up with Dr. Guerrero in 2 to 3 days. 4. Follow up with Orthopedic Surgery as recommended. MEDICATIONS ARE: 1. Aspirin 81 mg p.o. daily. 2. Wellbutrin SR 100 mg p.o. b.i.d. 3. Vitamin D3, 1000 daily. 4. Vitamin B12, 1000 mcg p.o. daily. 5. Aricept 10 mg q.h.s. 6. Evening Sasabe Oil 500 mg p.o. daily. 7. Flaxseed oil 1000 mg p.o. daily. 8. Magnesium 200 mg p.o. daily. 9. Multivitamins one p.o. daily. 10.Triamterene hydrochlorothiazide 37.5 mg 1 p.o. q.a.m. 11.Vitamin E 400 mg p.o. daily. 12.Zinc 50 mg p.o. daily. 13.Tylenol p.r.n. 14.Augmentin 875 mg one p.o. b.i.d. for 10 days. 15.Motrin 400 mg q.6 p.r.n. 16.Protonix 40 mg daily. 17.Chantix 1 b.i.d. Once again, the patient will be discharged in stable condition with guarded prognosis. MMODL / IJN: [id number] /
== END 2018-10-12 18:05 | disposition home health service (06) | DRG 603 ==
LOC: EC 13:56 → 4MS4W 16:41
PROVIDERS: ADMIT Internal Medicine; ATTEND Internal Medicine
PROC: 3E0234Z Introduction of Serum, Toxoid and Vaccine into Muscle, Percutaneous Approach (ICD-10-PCS; 2018-10-09)
PROC: 3E02340 Introduction of Influenza Vaccine into Muscle, Percutaneous Approach (ICD-10-PCS; 2018-10-09)
PROC: 0HCFXZZ Extirpation of Matter from Right Hand Skin, External Approach (ICD-10-PCS; principal; 2018-10-10 07:00)
DX: L03.113 Cellulitis of right upper limb (principal); S61.451A Open bite of right hand, initial encounter; D64.9 Anemia, unspecified; Z23 Encounter for immunization; F17.210 Nicotine dependence, cigarettes, uncomplicated; Z79.82 Long term (current) use of aspirin; W55.41XA Bitten by pig, initial encounter; Z79.899 Other long term (current) drug therapy; Z85.43 Personal history of malignant neoplasm of ovary; Z90.710 Acquired absence of both cervix and uterus; Z90.49 Acquired absence of other specified parts of digestive tract; Z98.891 History of uterine scar from previous surgery; Z82.49 Family history of ischemic heart disease and other diseases of the circulatory system
CPT/HCPCS: 36415; 80048; 80053; 80202; 81003; 85025; 87040; 87070; 87075; 87205; 90732; 96365; 96375; 99285

== ENCOUNTER → 2019-02-10 | Outpatient (CLI) | payer OTHER ==
--- NOTE | 2019-02-10 08:31 | MM ---
Reason for exam: additional evaluation requested from prior study. Last mammogram was performed 1 year and 1 month ago. History: Patient is postmenopausal and has history of ovarian cancer at age 52. Took estrogen for 6 years 1 month beginning at age 45. Physical Findings: Nurse did not find any significant physical abnormalities on exam. MG 3D Diag Mammo W/Cad LUCINA Bilateral CC and MLO view(s) were taken. ML, spot compression CC, and spot compression MLO view(s) were taken of the left breast. Prior study comparison: January 03, 2018, bilateral MG screening mammo w CAD. November 20, 2016, bilateral MG screening mammo w CAD. The breast tissue is heterogeneously dense. This may lower the sensitivity of mammography. Focal asymmetry 12 o'clock left breast 6cm from nipple. These results were verbally communicated with the patient and result sheet given to the patient on 02/10/19. ASSESSMENT: Incomplete: need additional imaging evaluation, BI-RAD 0 RECOMMENDATION: Ultrasound of the left breast.
--- NOTE | 2019-02-10 08:43 | USB ---
Reason for exam: additional evaluation requested from abnormal screening. History: Patient is postmenopausal and has history of ovarian cancer at age 52. Took estrogen for 6 years 1 month beginning at age 45. US Breast Limited LT Left limited breast ultrasound including focal area of concern, retroareolar and axilla demonstrates no cystic or solid lesion seen. These results were verbally communicated with the patient and result sheet given to the patient on 02/10/19. ASSESSMENT: Probably benign, BI-RAD 3 RECOMMENDATION: Follow-up diagnostic mammogram of the left breast in 6 months.
--- NOTE | 2019-02-10 09:19 | BD ---
EXAMINATION TYPE: Axial Bone Density DATE OF EXAM: 02/10/2019 COMPARISON: NONE CLINICAL HISTORY: Height: 63 Weight: 142.9 FRAX RISK QUESTIONS: Alcohol (3 or more units per day): no Family History (Parent hip fracture): no Glucocorticoids (More than 3mos): no (Ex: prednisone, prednisolone, methylprednisolone, dexamethasone, and hydrocortisone). History of Fracture in Adulthood: no Secondary Osteoporosis: 1. Type 1 Diabetes: no 2. Hyperthyroidism: no 3. Menopause before 45: no 4. Malnutrition: no 5. Chronic liver disease: no Rheumatoid Arthritis: no Current Tobacco Use: no RISK FACTORS HISTORY OF: Family History of Osteoporosis: yes Active: yes Diet low in dairy products/other sources of calcium: no Postmenopausal woman: age 49 Lost more than 2 inches in height since high school: no MEDICATIONS: water pill, chantix, anti-depressant, vitamins Additional History: pt had chemo treatments EXAM MEASUREMENTS: Bone mineral densitometry was performed using the [employer] System. Bone mineral density as measured about the Lumbar spine is: ----- L1-L4(G/cm2): 1.298 T Score Values are as follows: ----- L2: 0.3 ----- L3: 1.6 ----- L4: 1.7 ----- L1-L4: 1.0 Bone mineral density : baseline Bone mineral density about the R hip (g/cm2): 0.888 Bone mineral density about the L hip (g/cm2): 0.874 T Score values are as follows: -----R Neck: -1.1 -----L Neck: -1.2 -----R Total: -1.2 -----L Total: -1.0 Bone mineral density : baseline IMPRESSION: Osteopenia about the. NOTE: T-SCORE=SD OF THE YOUNG ADULT MEAN.
== END ==
LOC: RADMAMWWP 07:08
PROVIDERS: ATTEND Family Medicine
DX: R92.8 Other abnormal and inconclusive findings on diagnostic imaging of breast (principal); N64.4 Mastodynia; M85.80 Other specified disorders of bone density and structure, unspecified site; Z78.0 Asymptomatic menopausal state
CPT/HCPCS: 77080; 77066; 76642; G0279; 77062

== ENCOUNTER → 2019-11-15 | Outpatient (CLI) | payer OTHER ==
--- NOTE | 2019-11-15 14:30 | MM ---
Reason for exam: follow-up at short interval from prior study. Last mammogram was performed 9 months ago. History: Patient is postmenopausal and has history of ovarian cancer at age 52. Took estrogen for 6 years 1 month beginning at age 45. Physical Findings: Nurse did not find any significant physical abnormalities on exam. MG 3D Diag Mammo W/Cad LT CC and MLO view(s) were taken of the left breast. Prior study comparison: February 10, 2019, bilateral MG 3d diag mammo w/cad LUCINA. January 03, 2018, bilateral MG screening mammo w CAD. The breast tissue is heterogeneously dense. This may lower the sensitivity of mammography. No suspicious calcifications are seen. Focal asymmetry left breast persists although less conspicuous. These results were verbally communicated with the patient and result sheet given to the patient on 11/15/19. ASSESSMENT: Probably benign, BI-RAD 3 RECOMMENDATION: Follow-up diagnostic mammogram of both breasts in 3 months. Back on schedule for February 2020.
== END | disposition home or self-care (01) ==
LOC: RADMAMWWP 13:05
PROVIDERS: ATTEND Family Medicine
DX: R92.8 Other abnormal and inconclusive findings on diagnostic imaging of breast (principal)
CPT/HCPCS: 77065; G0279; 77061

== ENCOUNTER 2020-04-22 20:53 | Emergency (ER) | payer OTHER ==
[2020-04-22] MEDS ORDERED: ONDANSETRON 4 MG/2 ML VIAL IVP STA (21:19)
[2020-04-22] MEDS ORDERED: SODIUM CHLORIDE 0.9% 1,000 ML IV STA (21:19)
[2020-04-22] MEDS ORDERED: HYDROmorphone 0.5 MG/0.5 ML SYRINGE IVP STA (21:19)
--- NOTE | 2020-04-22 21:22 | ED ---
Abdominal Pain HPI - General Source: patient Mode of arrival: ambulatory Limitations: no limitations <Tess Sexton - Last Filed: 04/22/20 22:08> <Myrna Jacobs - Last Filed: 04/23/20 00:14> - General Chief Complaint: Abdominal Pain Stated Complaint: Nausea, abdominal pain Time Seen by Provider: 04/22/20 20:57 - History of Present Illness Initial Comments: 59-year-old female patient presents to the emergency department today for evaluation of abdominal pain and nausea. Patient states she's been having nausea for the last 6 weeks. States that she is able to keep down very minimal food and fluids. States she has lost 20 pounds over the last 6 weeks without trying. States over the last 2 days she has been having increased pain to the upper abdomen. States that the pain does not radiate through to her back. Denies any fevers or chills. Denies any constipation or diarrhea. Patient has had previous total hysterectomy, cholecystectomy, multiple hernia repairs, and has a known large hiatal hernia. Denies any other abdominal surgeries. Patient denies use of marijuana or alcohol. She does have a history of ovarian cancer completed chemotherapy in 2013. Patient has seen her primary care physician was started on Protonix and has been taking [id number] chewable Pepcid without relief of her symptoms. She is awaiting gastroenterology appointment. She denies any chest pain or shortness of breath. Denies any swelling to the extremities. Patient denies any recent rash, cough, shortness of breath, chest pain, diarrhea, constipation, back pain, numbness, tingling, dizziness, wea kness, hematuria, dysuria, urinary urgency, urinary frequency, headache, visual changes, or any other complaints. (Tess Sexton) - Related Data Home Medications Medication Instructions Recorded Confirmed Donepezil [Aricept] 10 mg PO HS 10/09/18 04/22/20 Donepezil [Aricept] 5 mg PO HS 04/22/20 04/22/20 Famotidine/Ca Carb/Mag Hydrox 1 tab PO DAILY 04/22/20 04/22/20 [Pepcid Complete Tablet Chew] Pantoprazole Sodium [Protonix] 20 mg PO DAILY 04/22/20 04/22/20 Triamterene-Hctz 37.5-25Mg 1 tab PO DAILY 04/22/20 04/22/20 [Dyazide 37.5-25 Capsule] buPROPion [Wellbutrin] 100 mg PO BID 04/22/20 04/22/20 Previous Rx's Medication Instructions Recorded Metoclopramide HCl [Reglan] 5 mg PO TID PRN #12 tablet 04/23/20 diphenhydrAMINE HCL [Benadryl] 25 mg PO Q8H PRN #30 tab 04/23/20 Allergies Allergy/AdvReac Type Severity Reaction Status Date / Time No Known Allergies Allergy Verified 04/22/20 22:44 Review of Systems ROS Other: All systems not noted in ROS Statement are negative. <Tess Sexton - Last Filed: 04/22/20 22:08> ROS Other: All systems not noted in ROS Statement are negative. <Myrna Jacobs - Last Filed: 04/23/20 00:14> ROS Statement: Those systems with pertinent positive or pertinent negative responses have been documented in the HPI. Past Medical History Past Medical History: Cancer Additional Past Medical History / Comment(s): ovarian cancer History of Any Multi-Drug Resistant Organisms: None Reported Past Surgical History: Section, Cholecystectomy, Hernia Repair, Hysterectomy Additional Past Surgical History / Comment(s): broken pinky finger Past Psychological History: No Psychological Hx Reported Smoking Status: Former smoker Past Alcohol Use History: Occasional Past Drug Use History: Marijuana - Past Family History Father Additional Family Medical History / Comment(s): heart attach at 64 <Tess Sexton M - Last Filed: 04/22/20 22:08> General Exam Limitations: no limitations General appearance: alert, in no apparent distress, other (This is a well- developed, well-nourished adult female patient in no acute distress. Vital signs upon presentation are temperature 97.5F, pulse 84, respirations 16, blood pressure 144/90, pulse ox 99% on room air.) Eye exam: Present: normal appearance, PERRL, EOMI. Absent: scleral icterus, conjunctival injection, periorbital swelling ENT exam: Present: normal exam, normal oropharynx, mucous membranes moist Respiratory exam: Present: normal lung sounds bilaterally. Absent: respiratory distress, wheezes, rales, rhonchi, stridor Cardiovascular Exam: Present: regular rate, normal rhythm, normal heart sounds. Absent: systolic murmur, diastolic murmur, rubs, gallop, clicks GI/Abdominal exam: Present: soft, tenderness (Lower abdominal tenderness), normal bowel sounds. Absent: distended, guarding, rebound, rigid Neurological exam: Present: alert, oriented X3, CN II-XII intact Psychiatric exam: Present: normal affect, normal mood Skin exam: Present: warm, dry, intact, normal color. Absent: rash <Tess Sexton - Last Filed: 04/22/20 22:08> Course Vital Signs 04/22/20 21:04 Temperature 97.5 F L Pulse Rate 84 Respiratory 16 Rate Blood Pressure 144/90 O2 Sat by Pulse 99 Oximetry Medical Decision Making - Lab Data Result diagrams: 04/22/20 21:25 04/22/20 21:25 - EKG Data -: EKG Interpreted by Me <Tess Sexton - Last Filed: 04/22/20 22:08> - Lab Data Result diagrams: 04/22/20 21:25 04/22/20 21:25 <Myrna Jacobs - Last Filed: 04/23/20 00:14> - Medical Decision Making Patient care was signed out to me by Tess Sexton nurse practitioner. Patient presented for nausea vomiting up her epigastric abdominal pain and weight loss. Labs and imaging were unremarkable. Patient received Zofran with no improvement in her nausea and vomiting. Patient received Reglan and Benadryl. Upon my reevaluation the patient reported resolution of her nausea and vomiting she is feeling much better she was tolerating ice chips. I did offer to keep her in observation for further evaluation however she is comfortable at this time with plan for discharge home with prescriptions for Reglan and Benadryl. She will follow up outpatient with GI as planned. (Myrna Jacobs) - Lab Data Lab Results 04/22/20 04/22/20 04/22/20 Range/Units 21:25 21:25 21:25 WBC 7.6 (3.8-10.6) k/uL RBC 4.81 (3.80-5.40) m/uL Hgb 14.2 (11.4-16.0) gm/dL Hct 43.4 (34.0-46.0) % MCV 90.3 (80.0-100.0) fL MCH 29.6 (25.0-35.0) pg MCHC 32.7 (31.0-37.0) g/dL RDW 11.8 (11.5-15.5) % Plt Count 361 (150-450) k/uL Neutrophils % 69 % Lymphocytes % 22 % Monocytes % 5 % Eosinophils % 2 % Basophils % 1 % Neutrophils # 5.2 (1.3-7.7) k/uL Lymphocytes # 1.7 (1.0-4.8) k/uL Monocytes # 0.4 (0-1.0) k/uL Eosinophils # 0.1 (0-0.7) k/uL Basophils # 0.1 (0-0.2) k/uL Sodium 136 L (137-145) mmol/L Potassium 3.8 (3.5-5.1) mmol/L Chloride 98 (98-107) mmol/L Carbon Dioxide 31 H (22-30) mmol/L Anion Gap 7 mmol/L BUN 17 (7-17) mg/dL Creatinine 0.89 (0.52-1.04) mg/dL Est GFR (CKD-EPI)AfAm 83 (>60 ml/min/1.73 sqM) Est GFR (CKD-EPI)NonAf 72 (>60 ml/min/1.73 sqM) Glucose 112 H (74-99) mg/dL Plasma Lactic Acid Adam 1.1 (0.7-2.0) mmol/L Calcium 9.9 (8.4-10.2) mg/dL Total Bilirubin 0.4 (0.2-1.3) mg/dL AST 33 (14-36) U/L ALT 22 (4-34) U/L Alkaline Phosphatase 101 (38-126) U/L Troponin I (0.000-0.034) ng/mL Total Protein 7.1 (6.3-8.2) g/dL Albumin 4.6 (3.5-5.0) g/dL Amylase 78 (30-110) U/L Lipase 163 (23-300) U/L Urine Color Urine Appearance (Clear) Urine pH (5.0-8.0) Ur Specific [place] (1.001-1.035) Urine Protein (Negative) Urine Glucose (UA) (Negative) Urine Ketones (Negative) Urine Blood (Negative) Urine Nitrite (Negative) Urine Bilirubin (Negative) Urine Urobilinogen (<2.0) mg/dL Ur Leukocyte Esterase (Negative) Urine RBC (0-5) /hpf Urine WBC (0-5) /hpf Ur Squamous Epith Cells (0-4) /hpf Amorphous Sediment (None) /hpf 04/22/20 04/22/20 Range/Units 21:25 21:46 WBC (3.8-10.6) k/uL RBC (3.80-5.40) m/uL Hgb (11.4-16.0) gm/dL Hct (34.0-46.0) % MCV (80.0-100.0) fL MCH (25.0-35.0) pg MCHC (31.0-37.0) g/dL RDW (11.5-15.5) % Plt Count (150-450) k/uL Neutrophils % % Lymphocytes % % Monocytes % % Eosinophils % % Basophils % % Neutrophils # (1.3-7.7) k/uL Lymphocytes # (1.0-4.8) k/uL Monocytes # (0-1.0) k/uL Eosinophils # (0-0.7) k/uL Basophils # (0-0.2) k/uL Sodium (137-145) mmol/L Potassium (3.5-5.1) mmol/L Chloride (98-107) mmol/L Carbon Dioxide (22-30) mmol/L Anion Gap mmol/L BUN (7-17) mg/dL Creatinine (0.52-1.04) mg/dL Est GFR (CKD-EPI)AfAm (>60 ml/min/1.73 sqM) Est GFR (CKD-EPI)NonAf (>60 ml/min/1.73 sqM) Glucose (74-99) mg/dL Plasma Lactic Acid Adam (0.7-2.0) mmol/L Calcium (8.4-10.2) mg/dL Total Bilirubin (0.2-1.3) mg/dL AST (14-36) U/L ALT (4-34) U/L Alkaline Phosphatase (38-126) U/L Troponin I <0.012 (0.000-0.034) ng/mL Total Protein (6.3-8.2) g/dL Albumin (3.5-5.0) g/dL Amylase (30-110) U/L Lipase (23-300) U/L Urine Color Light Yellow Urine Appearance Clear (Clear) Urine pH 7.5 (5.0-8.0) Ur Specific [place] 1.005 (1.001-1.035) Urine Protein Negative (Negative) Urine Glucose (UA) Negative (Negative) Urine Ketones Negative (Negative) Urine Blood Negative (Negative) Urine Nitrite Negative (Negative) Urine Bilirubin Negative (Negative) Urine Urobilinogen <2.0 (<2.0) mg/dL Ur Leukocyte Esterase Moderate H (Negative) Urine RBC <1 (0-5) /hpf Urine WBC 6 H (0-5) /hpf Ur Squamous Epith Cells <1 (0-4) /hpf Amorphous Sediment Rare H (None) /hpf - EKG Data EKG Comments: EKG obtained at 2125 shows normal sinus rhythm with a ventricular rate of 73, WI interval 140, QRS duration 80, QT 426, QTc 469. No evidence of ST elevation or depression. (Tess Sexton) Disposition <Tess Sexton - Last Filed: 04/22/20 22:08> Is patient prescribed a controlled substance at d/c from ED?: No <Myrna Jacobs - Last Filed: 04/23/20 00:14> Clinical Impression: Abdominal pain Disposition: HOME SELF-CARE Condition: Stable Instructions (If sedation given, give patient instructions): Abdominal Pain (ED) Prescriptions: diphenhydrAMINE HCL [Benadryl] 25 mg PO Q8H PRN #30 tab PRN Reason: Nausea Metoclopramide HCl [Reglan] 5 mg PO TID PRN #12 tablet PRN Reason: Nausea Referrals: Florian Balderas DO [Primary Care Provider] - 1-2 days
[2020-04-22 21:38] LABS: Basophils # (A) 0.1 k/uL (0-0.2); Basophils % (A) 1 %; Eosinophils # (A) 0.1 k/uL (0-0.7); Eosinophils % (A) 2 %; HCT 43.4 % (34.0-46.0); HGB 14.2 gm/dL (11.4-16.0); Lymphocytes # (A) 1.7 k/uL (1.0-4.8); Lymphocytes % (A) 22 %; MCH 29.6 pg (25.0-35.0); MCHC 32.7 g/dL (31.0-37.0); MCV 90.3 fL (80.0-100.0); Mean Platelet Volume 6.9; Monocytes # (A) 0.4 k/uL (0-1.0); Monocytes % (A) 5 %; Neutrophils # (A) 5.2 k/uL (1.3-7.7); Neutrophils % (A) 69 %; Platelet Count 361 k/uL (150-450); RBC 4.81 m/uL (3.80-5.40); RDW 11.8 % (11.5-15.5); WBC 7.6 k/uL (3.8-10.6)
[2020-04-22 21:46] LABS: Albumin 4.6 g/dL (3.5-5.0); Calcium 9.9 mg/dL (8.4-10.2); Potassium 3.8 mmol/L (3.5-5.1); Total Bilirubin 0.4 mg/dL (0.2-1.3); Total Protein 7.1 g/dL (6.3-8.2)
[2020-04-22 22:17] LABS: Amorphous Sediment,Urine Rare /hpf; Appearance,Urine Clear (Clear); Bilirubin,Urine Negative (Negative); Blood,Urine Negative (Negative); Color,Urine Light Yellow; Glucose,Urine (UA) Negative (Negative); Ketones,Urine Negative (Negative); Leukocyte Esterase,Urine Moderate (Negative); Nitrite,Urine Negative (Negative); PH, Urine 7.5 (5.0-8.0); Protein,Urine Negative (Negative); RBC,Urine <1 /hpf (0-5); Specific Gravity,Urine 1.005 (1.001-1.035); Squamous Epithelial Cell,Urine <1 /hpf (0-4); Urobilinogen,Urine <2.0 mg/dL (<2.0); WBC,Urine 6 /hpf (0-5)
--- NOTE | 2020-04-22 22:35 | CT ---
EXAMINATION TYPE: CT abdomen pelvis w con DATE OF EXAM: 04/22/2020 COMPARISON: None HISTORY: Abdominal pain and nausea x3 weeks. CT DLP: 584 mGycm Automated exposure control for dose reduction was used. CONTRAST: Performed with IV Contrast, patient injected with 100ml mL of Isovue 300. Images obtained from the diaphragm to the floor the pelvis with IV contrast. Lung bases are clear. There is no pleural effusion. There is 3 cm cyst in the anterior right lobe of the liver. There are clips from cholecystectomy. Spleen is intact. There is no pancreatic mass. The b ile ducts are not dilated. Stomach is intact. There is no adrenal mass. Kidneys show satisfactory contrast opacification. There is no hydronephrosi s. Ureters are not dilated. There is no retroperitoneal adenopathy. Bladder distends smoothly. There is no inguinal hernia. There is hysterectomy. There is no free fluid in the pelvis. Delayed images sh ow normal renal excretion. There are retroperitoneal surgical clips around the inferior vena cava. Lumbar vertebra shows slight levoscoliosis. There is no compression fracture. The bony pelvis is inta ct. Appendix is inferior and appears normal. Hip joints are intact. There are a few sigmoid diverticula without evidence of diverticulitis. There is no mesenteric edema. There is no ascites or free air. There is no sign of a bowel obstruction. IMPRESSION: Small hepatic cyst. I do not see a cause for abdominal pain. Normal appendix. Mild sigmoid diverticul osis.
[2020-04-22] MEDS ORDERED: diphenhydrAMINE 50 MG/ML 1 ML VIAL IVP STA (22:57)
[2020-04-22] MEDS ORDERED: METOCLOPRAMIDE 5 MG/ML 2 ML VIAL IVP STA (22:57)
[2020-04-23 00:29] VITALS: BP 126/67; PULSE 73; RESP 18; TEMP 97.2
== END 2020-04-23 00:28 | disposition home or self-care (01) ==
LOC: EC 20:53
DX: R10.13 Epigastric pain (principal); R11.2 Nausea with vomiting, unspecified; Z90.49 Acquired absence of other specified parts of digestive tract; Z87.891 Personal history of nicotine dependence; Z85.43 Personal history of malignant neoplasm of ovary; Z92.21 Personal history of antineoplastic chemotherapy; Z90.710 Acquired absence of both cervix and uterus
CPT/HCPCS: 36415; 93005; 80053; 82150; 83605; 83690; 84484; 85025; 81001; 74177; 99284; 96374; 96375 ×3; 96361 ×3; J1200; J2765; J2405; J1170; Q9967

== ENCOUNTER → 2021-04-07 | Outpatient (CLI) | payer OTHER ==
--- NOTE | 2021-04-11 13:46 | MM ---
Reason for exam: screening (asymptomatic). Last mammogram was performed 1 year and 5 months ago. History: Patient is postmenopausal and has history of ovarian cancer at age 52. Took estrogen for 6 years 1 month beginning at age 45. Physical Findings: A clinical breast exam by your physician is recommended on an annual basis and results should be correlated with mammographic findings. MG 3D Screening Mammo W/Cad Bilateral CC and MLO view(s) were taken. Prior study comparison: November 15, 2019, left breast MG 3d diag mammo w/cad LT. February 10, 2019, bilateral MG 3d diag mammo w/cad LUCINA. The breast tissue is heterogeneously dense. This may lower the sensitivity of mammography. ASSESSMENT: Benign, BI-RAD 2 RECOMMENDATION: Routine screening mammogram of both breasts in 1 year.
== END | disposition home or self-care (01) ==
LOC: RADMAMWWP 13:11
PROVIDERS: ATTEND Family Medicine
DX: Z12.31 Encounter for screening mammogram for malignant neoplasm of breast (principal); Z85.43 Personal history of malignant neoplasm of ovary; Z79.818 Long term (current) use of other agents affecting estrogen receptors and estrogen levels
CPT/HCPCS: 77063; 77067

== ENCOUNTER → 2022-08-24 | Outpatient (CLI) | payer OTHER ==
--- NOTE | 2022-08-24 14:06 | MM ---
Reason for Exam: Screening (asymptomatic). Last mammogram was performed 1 year(s) and 5 month(s) ago. Patient History: Menarche at age 14. First Full-Term at age 22. Left ovary removed at age 52. Right ovary removed at age 52. Hysterectomy at age 52. Postmenopausal. Patient has history of breast feeding. Ovarian cancer, age 52. Estrogen for 6 years, 1 month, from age 45 until age 52. Risk Values: Yue 5 year model risk: 1.3%. NCI Lifetime model risk: 6.6%. Prior Study Comparison: 11/15/2015 Bilateral Screening Mammogram, [facility]. 11/20/2016 Bilateral Screening Mammogram, [facility]. 01/03/2018 Bilateral Screening Mammogram, [facility]. 02/10/2019 Bilateral Diagnostic Mammogram, [facility]. 11/15/2019 Left Diagnostic Mammogram, [facility]. 04/07/2021 Bilateral Screening Mammogram, [facility]. Tissue Density: The breast tissue is heterogeneously dense. This may lower the sensitivity of mammography. Findings: Analyzed By CAD. There are a few small benign-appearing round calcifications redemonstrated scattered throughout the bilateral breasts. There is no suspicious new group of microcalcifications or new suspicious mass in either breast. Overall Assessment: Negative, BI-RAD 1 Management: Screening Mammogram of both breasts in 1 year. Some advise bilateral breast ultrasound surveillance in patients with background dense tissue. A clinical breast exam by your physician is recommended on an annual basis and results should be correlated with mammographic findings. Electronically signed and approved by: Froylan Gan M.D.
== END | disposition home or self-care (01) ==
LOC: RADMAMWWP 08:50
PROVIDERS: ATTEND Family Medicine
DX: Z12.31 Encounter for screening mammogram for malignant neoplasm of breast (principal)
CPT/HCPCS: 77063; 77067

== ENCOUNTER → 2023-06-07 | Outpatient (CLI) | payer OTHER ==
--- NOTE | 2023-06-07 11:56 | CA ---
Exercise Stress Test Report Name: Crystal Pereira Exam Date: 06/07/2023 09:18 Exam Location: [facility] Ht (in): 63 Wt (lb): 135 BSA: 1.64 Ordering Phys: Clayton Guerrero DO Referring Phys: kendell, Technologist: Jovani Wynne Age: 62 Gender: F : 1960 Procedure CPT: Indications: R07.9 CHEST PAIN ICD-10 Codes: Patient History: Chest burning Medications: Meds past 24 hrs: Pretest Chest Pain: STRESS TEST Marcos Protocol Exercise Duration (min:sec): 09:[address] Depressions (mm): Angina Score: Cordova Score: Resting HR (bpm): 65 Peak HR (bpm): 142 Resting BP (mmHg): 149 / 85 Peak BP (mmHg): 195 / 81 MPHR: 159 Target HR: 135 % MPHR: 89 METS: 10.6 Total Dose: Peak Dose: Atropine: Double Product: 22215 BP Response: Stress Termination: Reached target heart rate Stress Symptoms: No chest pain or symptoms Stress Summary: ECG ANALYSIS Resting ECG: Stress ECG: CONCLUSIONS Excellent exercise tolerance The patient exercised for 9 minutes and 11 seconds and achieved 10.6 METS Normal EKG in the response to exercise Dr. Geraldo Henning MD (Electronically Signed) Final Date: 07 June 2023 11:55
== END | disposition home or self-care (01) ==
LOC: RADNMMAIN 08:52
PROVIDERS: ATTEND Family Medicine
DX: R07.9 Chest pain, unspecified (principal)
CPT/HCPCS: 93017

== ENCOUNTER → 2023-09-20 | Outpatient (CLI) | payer OTHER ==
--- NOTE | 2023-09-21 21:16 | MM ---
Reason for Exam: Screening (asymptomatic). Last mammogram was performed 1 year(s) and 1 month(s) ago. Patient History: Menarche at age 14. First Full-Term at age 22. Left ovary removed at age 52. Right ovary removed at age 52. Hysterectomy at age 52. Postmenopausal. Patient has history of breast feeding. Ovarian cancer, age 52. Estrogen for 6 years, 1 month, from age 45 until age 52. Risk Values: Yue 5 year model risk: 1.4%. NCI Lifetime model risk: 6.2%. Prior Study Comparison: 11/15/2019 Left Diagnostic Mammogram, [facility]. 04/07/2021 Bilateral Screening Mammogram, [facility]. 08/24/2022 Bilateral MG 3D screening mammo w/cad, [facility]. Tissue Density: The breast tissue is heterogeneously dense. This may lower the sensitivity of mammography. Findings: Analyzed By CAD. There is chronic nodularity on the right. There is no suspicious group of microcalcifications or new suspicious mass in either breast. Overall Assessment: Benign, BI-RAD 2 Management: Screening Mammogram of both breasts in 1 year. . Patient should continue monthly self-breast exams. A clinical breast exam by your physician is recommended on an annual basis. This exam should not preclude additional follow-up of suspicious palpable abnormalities. Note on Yue scores and lifetime risk: 1. A Yue score greater than 3% is considered moderate risk. If this is the case, consider specialist referral to assess eligibility for a risk reducing agent. 2. If overall lifetime risk for the development of breast cancer is 20% or higher, the patient may qualify for future screening with alternating mammogram and breast MRI. Electronically signed and approved by: Halie Almazan M.D. Radiologist
== END | disposition home or self-care (01) ==
LOC: RADMAMWWP 14:41
PROVIDERS: ATTEND Family Medicine
DX: Z12.31 Encounter for screening mammogram for malignant neoplasm of breast (principal); Z78.0 Asymptomatic menopausal state
CPT/HCPCS: 77063; 77067

== ENCOUNTER 2024-07-21 07:43 | Day surgery (SDC) | payer OTHER ==
--- NOTE | 2024-07-21 06:43 | P.GSHP ---
History of Present Illness H&P Date: 07/21/24 CHIEF COMPLAINT: Incisional ventral hernia. HISTORY OF PRESENT ILLNESS: The patient is a 63-year-old female who presents with swelling along the abdomen for over 3 month with pain and tenderness from hernia. Findings were consistent with incisional hernia. Now she presents for further evaluation and management. PAST MEDICAL HISTORY: Please see list and reviewed. PAST SURGICAL HISTORY: Please see list and reviewed. MEDICATIONS: Please see list and reviewed. ALLERGIES: Please see list and reviewed. SOCIAL HISTORY: Please see list and reviewed. FAMILY HISTORY: No reports of Crohn disease or ulcerative colitis. REVIEW OF ORGAN SYSTEMS: CONSTITUTIONAL: No reports of fevers or chills. GI: Denies any blood in stools or constipation. HEENT: Denies any trouble with vision, hearing or nosebleeds. No difficulty swallowing. LYMPHATIC: The patient denies any lumps and bumps around the neck. ENDOCRINE: Denies any thyroid disorders. Denies any blood sugar glucose intolerance. RESPIRATORY: Denies pneumonia. Denies any troubles with breathing or dyspnea on exertion. CARDIOVASCULAR: Denies any chest pain, palpitations, or recent heart attacks. GENITOURINARY: Denies any blood in urine or increased urinary frequency. MUSCULOSKELETAL: Denies any back pain, stiffness, joint arthritis. NEUROLOGIC: Denies any numbness or tingling along the distal extremities. No seizure disorders or headaches. PSYCHIATRIC: No suidical ideation. HEMATOLOGIC: Denies any abnormal bleeding or bruising. BREASTS: Denies any breast lumps, pain or nipple discharge. PHYSICAL EXAM: VITAL SIGNS: Stable GENERAL: Well-developed pleasant female in no acute distress. HEENT: No scleral icterus. Extraocular movements grossly intact. Moist buccal mucosa. NECK: Supple without lymphadenopathy. CHEST: Unlabored respirations. Equal bilateral excursions. CARDIOVASCULAR: Regular rate and rhythm. Distal 2+ pulses. ABDOMEN: Soft, nondistended. Incisional hernia of the abdomen. MUSCULOSKELETAL: No clubbing, cyanosis, or edema. SKIN: Well perfused. PSYCH: Alert and oriented. No focal or lateralizing signs. ASSESSMENT: 1. Incisional hernia. PLAN: 1. Recommend proceeding with robotic incisional hernia repair with mesh. 2. Benefits and risks of surgical intervention was discussed including possibility of open technique. 3. DVT prophylaxis. 4. Antibiotic prophylaxis. 5. Non-narcotic pain managment reviewed. Past Medical History Past Medical History: Cancer, GERD/Reflux, Osteoarthritis (OA) Additional Past Medical History / Comment(s): ovarian cancer 2012-had chemo & surgery History of Any Multi-Drug Resistant Organisms: None Reported Past Surgical History: Section, Cholecystectomy, Hernia Repair, Hysterectomy Additional Past Surgical History / Comment(s): inguinal hernia repair Past Anesthesia/Blood Transfusion Reactions: No Reported Reaction Smoking Status: Former smoker - Past Family History Father Additional Family Medical History / Comment(s): heart attach at 64 Medications and Allergies Home Medications Medication Instructions Recorded Confirmed Type Donepezil [Aricept] 10 mg PO HS 10/09/18 07/17/24 History Calcium Carbonate [Calcium] 600 mg PO DAILY 07/17/24 07/17/24 History DULoxetine HCL [Cymbalta] 60 mg PO HS 07/17/24 07/17/24 History L.acidoph,Paracasei, B.lactis 1 each PO HS 07/17/24 07/17/24 History [Probiotic] Magnesium 400 mg PO Q2D 07/17/24 07/17/24 History Meloxicam [Mobic] 15 mg PO DAILY PRN 07/17/24 07/17/24 History Multivit-Min/Iron/Folic/Lutein 1 each PO DAILY 07/17/24 07/17/24 History [Centrum Silver Women Tablet] Omeprazole [PriLOSEC] 20 mg PO DAILY 07/17/24 07/17/24 History Potassium(Unknown Dose) 1 tab PO Q2D 07/17/24 History Varenicline [Chantix] 1 mg PO DAILY 07/17/24 07/17/24 History Vitamin A Acetate [Vitamin A] 10,000 unit SL Q2D 07/17/24 07/17/24 History Vitamin D3/Vitamin K2 (Mk4) 1 each PO DAILY 07/17/24 07/17/24 History [Vitamin K2 Plus D3 Tablet] Allergies Allergy/AdvReac Type Severity Reaction Status Date / Time No Known Allergies Allergy Verified 07/17/24 09:47
[2024-07-21] MEDS: MELOXICAM 7.5 MG TAB PO PRN (08:22)
[2024-07-21] MEDS: ACETAMINOPHEN TAB 500 MG TAB PO PRN (08:22)
[2024-07-21] MEDS: ONDANSETRON 4 MG/2 ML VIAL IVP PRN (08:23)
[2024-07-21] MEDS: DEXAMETHASONE SOD PHOSPHATE 4 MG/ML 1 ML VIAL IVP STA (08:24)
[2024-07-21 08:39] LABS: HCT 42.3 % (34.0-46.0); HGB 13.9 gm/dL (11.4-16.0); MCH 30.1 pg (25.0-35.0); MCHC 32.8 g/dL (31.0-37.0); MCV 91.8 fL (80.0-100.0); Mean Platelet Volume 6.7; Platelet Count 319 k/uL (150-450); RDW 11.7 % (11.5-15.5); WBC 4.6 k/uL (3.8-10.6)
[2024-07-21] MEDS: fentaNYL (PF) 50 MCG/ML 2 ML AMP IVP PRN (08:47)
[2024-07-21] MEDS: MIDAZOLAM 2 MG/2 ML VIAL IV PRN (08:47)
[2024-07-21 08:51] LABS: ALT 29 U/L (4-34); AST 39 U/L (14-36); African American GFR (CKD) >90 (>60 ml/min/1.73 sqM); Albumin 4.4 g/dL (3.5-5.0); Alkaline Phosphatase 76 U/L (38-126); Anion Gap 5 mmol/L; Blood Urea Nitrogen 19 mg/dL (7-17); Calcium 9.6 mg/dL (8.4-10.2); Carbon Dioxide 31 mmol/L (22-30); Chloride 104 mmol/L (98-107); Glucose 99 mg/dL (74-99); Non-African American GFR(CKD) >90 (>60 ml/min/1.73 sqM); Potassium 4.2 mmol/L (3.5-5.1); Sodium 140 mmol/L (137-145); Total Bilirubin 0.7 mg/dL (0.2-1.3); Total Protein 7.1 g/dL (6.3-8.2)
[2024-07-21] MEDS: LACTATED RINGERS 1,000 ML IV SCH (08:52)
[2024-07-21] MEDS: IV FLUID CONTINUATION 1,000 ML IV ONE ×2 (08:54→16:15)
[2024-07-21] MEDS: HEPARIN SODIUM,PORCINE 5,000 UNIT/ML 1 ML VIAL SQ PRN (08:56)
[2024-07-21] MEDS: LIDOCAINE 1%-EPI 1:100,000 20 ML VIAL SQ ONE ×3 (08:59→09:48)
--- NOTE | 2024-07-21 09:00 | P.ANPRN ---
Procedure Note - Anesthesia - Nerve Block Performed Bilateral Erector Spinae Single Time Out Performed: Yes Date of Procedure: 07/21/24 Procedure Start Time: 08:46 Procedure Stop Time: 08:55 Location of Patient: PreOp Indication: Acute Post-Operative Pain, Requested by Surgeon Sedation Type: Sedate with meaningful contact maintained Preparation: Sterile Prep Position: Prone Needle Types: Pajunk Needle Gauge: 21 Ultrasound used to visualize needle placement: Yes Ultrasound used to observe medication spread: Yes Injectate: 0.5% Ropivacaine (see comment for volume) (15 mL +15 mL of normal saline +4 mg dexamethasone per side) Blood Aspirated: No Pain Paresthesia on Injection Noted: No Resistance on Injection: Normal Image Stored and Saved: Yes Events: Uneventful and Well Tolerated
--- NOTE | 2024-07-21 09:02 | P.HPADDEND ---
H&P Addendum H&P Addendum Date: 07/21/24 Patient notified me of new skin changes with multiple tears from environmental trauma. Patient concerned about wound healing. Patient has hernia of the abdominal wall being addressed as found on her prior CT scan reviewed 2019 from an incisional port site hernia. Patient and family corrected uptight procedure which is a ventral hernia repair not a hiatal hernia repair. Wound care management of the abdominal wall being addressed with laparoscopic sites versus open surgery.
[2024-07-21] MEDS ORDERED: ROCURONIUM 10 MG/ML (5 ML VIAL) IV ONE (09:14)
[2024-07-21] MEDS ORDERED: SUCCINYLCHOLINE CHLORIDE 200 MG/10 ML VIAL IV ONE (09:14)
[2024-07-21] MEDS ORDERED: ROPIVACAINE 5 MG/ML 30 ML VIAL ONE (09:14)
[2024-07-21] MEDS ORDERED: PROPOFOL 10 MG/ML 20 ML VIAL IV ONE (09:14)
[2024-07-21] MEDS ORDERED: GLYCOPYRROLATE 0.2 MG/ML 2 ML VIAL ONE (09:14)
[2024-07-21] MEDS ORDERED: LIDOCAINE 1% INJ 10MG/ML (20 ML MDV) ONE (09:14)
[2024-07-21] MEDS ORDERED: DEXAMETHASONE SOD PHOSPHATE 4 MG/ML 1 ML VIAL ONE (09:14)
[2024-07-21] MEDS ORDERED: fentaNYL (PF) 50 MCG/ML 2 ML AMP ONE (09:14)
[2024-07-21] MEDS ORDERED: NEOSTIGMINE 1 MG/ML 10 ML VIAL ONE (09:14)
[2024-07-21] MEDS ORDERED: SODIUM CHLORIDE 0.9% (PF) 10 ML VIAL ONE (09:14)
[2024-07-21 11:07] VITALS: TEMP 97.4
[2024-07-21] MEDS: HYDROmorphone 0.5 MG/0.5 ML SYRINGE IVP PRN (11:24)
--- NOTE | 2024-07-21 11:28 | P.OP ---
Date of Procedure: 07/21/24 Description of Procedure: SURGEON: TJ AGEE MD PREOPERATIVE DIAGNOSES: 1. Initial epigastric incisional ventral hernia with incarceration 2. Gastroesophageal reflux disease 3. Depressive disorder 4. History of ovarian cancer 5. Status post chemoradiation POSTOPERATIVE DIAGNOSES: 1. Initial epigastric incisional ventral hernia with incarceration, 3 x 2 cm 2. Gastroesophageal reflux disease 3. Depressive disorder 4. History of ovarian cancer 5. Status post chemoradiation OPERATION: 1. Robotic-assisted da Mary Xi laparoscopic repair of initial incarcerated epigastric incisional ventral hernia with mesh, ventralight ST mesh 11.4 cm Anesthesia: GETA, regional, local Estimated Blood Loss (ml): 5 Pathology: None COMPLICATIONS: None. Operative Findings: 1. Upper midline epigastric ventral hernia defect 2 x 3 cm 2. Fascia repaired using #1 V-lock suture INDICATIONS: The patient is a 63-year-old female who presents with incarcerated incisional hernia from prior laparoscopic surgeries. Patient reports epigastric pain. Imaging studies were consistent with an incarcerated port site hernia. Surgical intervention with laparoscopic versus robotic and open techniques were reviewed. Placement of mesh was also reviewed. Benefits and risks were thoroughly described. Informed consent was obtained. DESCRIPTION OF PROCEDURE: The patient was brought into the operating room and laid in supine position. After general induction, the abdomen had been prepped and draped in standard sterile fashion. Ioban draping was also placed. Prior to incision, a timeout protocol was confirmed with surgical team regarding the patient's name including procedures to be performed. The robot was primed prior to the procedure. A field block using local anesthetic was placed along hernia site including the proposed port sites. Initial incision was made with an #11 blade along the left upper quadrant. A 0 degree 5 mm laparoscopic trocar entry was performed and insufflated. Three 8 mm ports were placed along the left lateral abdominal wall under direct locali zation after exchanging the 5-mm for an 8 mm port. Placements of the ports were 15 cm from the target anatomy and 10 cm apart. An accessory 12 mm port was placed at the right upper quadrant for exchange of mesh including sutures. The el?i Xi robot was previously primed, prepped and draped then docked from the right side of the patient onto the left side of the patient. I then sat at the robot [employer] console where working arms of the robot including Bovie cautery connected to robotic scissors, needle driver retraining instructor, and graspers placed by the appeals assistant. Incarcerated falciform ligament of the epigastrium was identified. The defect was reduced with preperitoneal fat including the falciform ligament at the upper midline defect. Upper midline defect 2 x 3 cm was measured. The incarcerated contents were reduced as the peritoneal fat was cleaned from the abdominal wall. Next, hemostasis was checked with cautery. The hernia defects were oversewn using #1 nonabsorbable V-lock suture for each defect separately with fascial imbrication x 2. Next, ventralight ST mesh 11.4 cm was placed with the rough side towards the abdominal wall as to cover the epigastric defect. 2-0 VLOC 9 and 12 inch sutures were used to fixate the mesh. A final endoscopic imaging was obtained. All instruments and pneumoperitoneum were evacuated from the abdominal cavity. The da Mary Xi robot was undocked from the patient. I re-scrubbed into the case for closure of incisions. The fascia of the 12-mm port was probed and less than 8-mm in size. The incisions were reapproximated using 4-0 Monocryl in an interrupted subcuticular fashion. Liquid glue was applied to the skin after cleansing the skin with normal saline and dilute hydrogen peroxide. An abdominal binder was placed. At the end of the procedure, needle, sponge, and instrument count had been verified correct by inventory technician. The patient was taken to the postanesthesia care unit in stable condition. Plan - Discharge Summary Discharge Rx Participant: No New Discharge Prescriptions: No Action Donepezil [Aricept] 10 mg PO HS DULoxetine HCL [Cymbalta] 60 mg PO HS Varenicline [Chantix] 1 mg PO DAILY Potassium(Unknown Dose) 1 tab PO Q2D Magnesium 400 mg PO Q2D Omeprazole [PriLOSEC] 20 mg PO DAILY Vitamin D3/Vitamin K2 (Mk4) [Vitamin K2 Plus D3 Tablet] 1 each PO DAILY Vitamin A Acetate [Vitamin A] 10,000 unit SL Q2D Multivit-Min/Iron/Folic/Lutein [Centrum Silver Women Tablet] 1 each PO DAILY Meloxicam [Mobic] 15 mg PO DAILY PRN PRN Reason: Pain L.acidoph,Paracasei, B.lactis [Probiotic] 1 each PO HS Calcium Carbonate [Calcium] 600 mg PO DAILY Discharge Medication List Donepezil [Aricept] 10 mg PO HS 10/09/18 [History] Calcium Carbonate [Calcium] 600 mg PO DAILY 07/17/24 [History] DULoxetine HCL [Cymbalta] 60 mg PO HS 07/17/24 [History] L.acidoph,Paracasei, B.lactis [Probiotic] 1 each PO HS 07/17/24 [History] Magnesium 400 mg PO Q2D 07/17/24 [History] Meloxicam [Mobic] 15 mg PO DAILY PRN 07/17/24 [History] Multivit-Min/Iron/Folic/Lutein [Centrum Silver Women Tablet] 1 each PO DAILY 07/17/24 [History] Omeprazole [PriLOSEC] 20 mg PO DAILY 07/17/24 [History] Potassium(Unknown Dose) 1 tab PO Q2D 07/17/24 [History] Varenicline [Chantix] 1 mg PO DAILY 07/17/24 [History] Vitamin A Acetate [Vitamin A] 10,000 unit SL Q2D 07/17/24 [History] Vitamin D3/Vitamin K2 (Mk4) [Vitamin K2 Plus D3 Tablet] 1 each PO DAILY 07/17/24 [History]
[2024-07-21] MEDS: LACTATED RINGERS 1,000 ML IV ONE (11:55)
[2024-07-21] MEDS: KETOROLAC 15 MG/ML 1 ML VIAL IVP STA (13:01)
[2024-07-21 14:08] VITALS: RESP 18
[2024-07-21 16:28] VITALS: BP 134/74; PULSE 91
[2024-07-21] MEDS: TAMSULOSIN 0.4 MG CAP.ER.24H PO STA (16:45)
[2024-07-21] MEDS: ACETAMINOPHEN TAB 325 MG TAB PO STA (16:52)
== END 2024-07-21 17:18 | disposition home or self-care (01) ==
LOC: OR 07:43
PROVIDERS: ATTEND Surgery Plastic and Reconstructive Surgery
CPT/HCPCS: 64999; 80053; 85027

== ENCOUNTER → 2024-09-21 | Outpatient (CLI) | payer OTHER ==
--- NOTE | 2024-09-23 22:50 | MM ---
Reason for Exam: Screening (asymptomatic). Last screening mammogram was performed 12 month(s) ago. Patient History: Menarche at age 14. First Full-Term at age 22. Left ovary removed at age 52. Right ovary removed at age 52. Hysterectomy at age 52. Postmenopausal. Patient has history of breast feeding. Ovarian cancer, age 52. Estrogen for 6 years, 1 month, from age 45 until age 52. Risk Values: Yue 5 year model risk: 1.4%. NCI Lifetime model risk: 6.0%. Prior Study Comparison: 01/03/2018 Bilateral Screening Mammogram, [facility]. 02/10/2019 Bilateral Diagnostic Mammogram, [facility]. 11/15/2019 Left Diagnostic Mammogram, [facility]. 04/07/2021 Bilateral Screening Mammogram, [facility]. 08/24/2022 Bilateral MG 3D screening mammo w/cad, [facility]. 09/20/2023 Bilateral MG 3D screening mammo w/cad, [facility]. Tissue Density: The breasts are heterogeneously dense, which may obscure small masses. Findings: Analyzed By CAD. The pattern is symmetrical. No significant interval changes. No suspicious groups of microcalcifications, spiculated or lobular masses, architectural distortion or other secondary signs of malignancy are mammographically apparent. Overall Assessment: Incomplete: need additional imaging evaluation, BI-RAD 0 Management: Diagnostic Mammogram of the right breast. A negative mammogram report should not preclude additional follow up of suspicious palpable abnormalities. Patient should continue monthly self breast exam. A clinical breast exam by your physician is recommended on an annual basis and results should be correlated with mammographic findings. Note on Yue scores and lifetime risk: 1. A Yue score greater than 3% is considered moderate risk. If this is the case, consider specialist referral to assess eligibility for a risk reducing agent. 2. If overall lifetime risk for the development of breast cancer is 20% or higher, the patient may qualify for future screening with alternating mammogram and breast MRI. [facility], , 09/23/2024 10:39 PM. Electronically signed and approved by: Reginaldo Fierro D.O. Radiologis
== END | disposition home or self-care (01) ==
LOC: RADMAMWWP 14:50
PROVIDERS: ATTEND Family Medicine
DX: Z12.31 Encounter for screening mammogram for malignant neoplasm of breast (principal); R92.333 Mammographic heterogeneous density, bilateral breasts; Z78.0 Asymptomatic menopausal state
CPT/HCPCS: 77063; 77067

== ENCOUNTER → 2024-09-26 | Outpatient (CLI) | payer OTHER ==
--- NOTE | 2024-09-26 09:04 | MM ---
Reason for Exam: Additional evaluation requested from abnormal screening. Last screening mammogram was performed less than 1 month ago. Patient History: Menarche at age 14. First Full-Term at age 22. Left ovary removed at age 52. Right ovary removed at age 52. Hysterectomy at age 52. Postmenopausal. Patient has history of breast feeding. Ovarian cancer, age 52. Estrogen for 6 years, 1 month, from age 45 until age 52. Risk Values: Yue 5 year model risk: 1.4%. NCI Lifetime model risk: 6.0%. Prior Study Comparison: 12/23/2011 Left Diagnostic Mammogram, [facility]. 06/24/2012 Left Diagnostic Mammogram, [facility]. 06/24/2012 Left Diagnostic Ultrasound, [facility]. 02/23/2013 Bilateral Screening Mammogram, [facility]. 03/26/2014 Bilateral Screening Mammogram, [facility]. 11/15/2015 Bilateral Screening Mammogram, [facility]. 11/20/2016 Bilateral Screening Mammogram, [facility]. 01/03/2018 Bilateral Screening Mammogram, [facility]. 02/10/2019 Bilateral Diagnostic Mammogram, [facility]. 02/10/2019 Left Diagnostic Ultrasound, [facility]. 11/15/2019 Left Diagnostic Mammogram, [facility]. 04/07/2021 Bilateral Screening Mammogram, [facility]. 08/24/2022 Bilateral MG 3D screening mammo w/cad, [facility]. 09/20/2023 Bilateral MG 3D screening mammo w/cad, [facility]. 09/21/2024 Bilateral MG 3D screening mammo w/cad, [facility]. Tissue Density: Right: The breasts are extremely dense, which lowers the sensitivity of mammography. Findings: Analyzed By CAD. No distinct mass or distortion present at this time. Overall Assessment: Negative, BI-RAD 1 Management: Screening Mammogram of both breasts in 1 year. . Results were given to the patient verbally at the time of exam. Patient should continue monthly self-breast exams. A clinical breast exam by your physician is recommended on an annual basis. This exam should not preclude additional follow-up of suspicious palpable abnormalities. Note on Yue scores and lifetime risk: 1. A Yue score greater than 3% is considered moderate risk. If this is the case, consider specialist referral to assess eligibility for a risk reducing agent. 2. If overall lifetime risk for the development of breast cancer is 20% or higher, the patient may qualify for future screening with alternating mammogram and breast MRI. [facility], , 09/26/2024 9:00 AM. Electronically signed and approved by: Julio C Ceron M.D. Radiologis
== END | disposition home or self-care (01) ==
LOC: RADMAMWWP 08:31
PROVIDERS: ATTEND Family Medicine
DX: R92.8 Other abnormal and inconclusive findings on diagnostic imaging of breast (principal); Z90.722 Acquired absence of ovaries, bilateral; Z78.0 Asymptomatic menopausal state; R92.341 Mammographic extreme density, right breast
CPT/HCPCS: 77061; 77065